=== PATIENT | female | born 1960 | race Caucasian/White ===

== ENCOUNTER → 2017-08-16 | Outpatient (CLI) | payer BC ==
[2017-08-16 11:29] VITALS: RESP 16; BMI 26.0
--- NOTE | 2017-08-16 13:28 | USB ---
EXAMINATION TYPE: US biopsy breast VAD RT DATE OF EXAM: 08/16/2017 CLINICAL HISTORY: R92.8 Abnormal mammogram. TECHNIQUE: Ultrasound guided core biopsy of right breast. COMPARISON: Mammogram and ultrasound 08/11/2017 FINDINGS: The procedure of ultrasound guided core biopsy was explained to the patient. Benefits, alternatives, and risks were discussed. An informed consent was then obtained. The patient was placed in supine positioning for imaging and for the procedure. The overlying skin was prepped and draped in usual sterile fashion. Lidocaine was used as anesthetic into the skin and subcutaneous tissue up to area of concern in the right breast. A ebony was made with surgical scalpel. Under ultrasound guidance, a 12-gauge vacuum assisted biopsy gun device was used to obtain multiple core samples. Following this, a biopsy clip was left in lesion. Postprocedure digital mammogram verified placement within the area of abnormality at the 3:00 position of the right breast. The patient tolerated the procedure well without any immediate complication. The patient was kept in the radiology department for short stay after the procedure and then discharged home in stable condition. IMPRESSION: Successful, uncomplicated ultrasound guided vacuum assisted core biopsy of area of concern in the right breast, full pathology results to follow. 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 Recommendation Surgical consult of the right breast. KATARZYNA
--- NOTE | 2017-08-16 13:36 | MM ---
Reason for exam: additional evaluation requested from abnormal screening. Last mammogram was performed less than 1 month ago. History: Patient is postmenopausal. Took hormonal contraceptives for 20 years. Took estrogen for 2 years. MG Diagnostic Mammo RT Wo CAD CC and LM view(s) were taken of the right breast. Prior study comparison: August 11, 2017, bilateral MG 3d diag mammo w/cad MARCY. September 09, 2016, mammogram, performed at [facility]. ASSESSMENT: Post procedure mammogram for marker placement RECOMMENDATION: Ultrasound of the right breast in 6 months. PENDING PATHOLOGY RESULTS.
[2017-08-16 13:43] VITALS: BP 145/83; PULSE 81; TEMP 97.5
== END | disposition home or self-care (01) ==
LOC: RADUSWWP 11:03
PROVIDERS: ATTEND Surgery
DX: R92.8 Other abnormal and inconclusive findings on diagnostic imaging of breast (principal); C50.811 Malignant neoplasm of overlapping sites of right female breast
CPT/HCPCS: 88305; 19083; G0206; A4648; J2001

== ENCOUNTER → 2017-12-16 | Outpatient (CLI) | payer BC ==
--- NOTE | 2017-12-17 09:47 | BD ---
EXAMINATION TYPE: MG DEXA axial skeleton. DATE OF EXAM: 12/16/2017 COMPARISON: NONE CLINICAL HISTORY: Height: 63 Weight: 148.6 FRAX RISK QUESTIONS: Alcohol (3 or more units per day): no Family History (Parent hip fracture): no Glucocorticoids (More than 3mos): yes-asthma (Ex: prednisone, prednisolone, methylprednisolone, dexamethasone, and hydrocortisone). History of Fracture in Adulthood: no Secondary Osteoporosis: 1. Type 1 Diabetes: no 2. Hyperthyroidism: no 3. Menopause before 45: yes 4. Malnutrition: no 5. Chronic liver disease: no Rheumatoid Arthritis: no Current Tobacco Use: no RISK FACTORS HISTORY OF: History of Wrist Fracture: right When: at age 6 Surgery to Spine/Hip(right/left)/Wrist (right/left): no Family History of Osteoporosis: yes mother Active: sometimes Diet low in dairy products/other sources of calcium: no Postmenopausal woman: age 37 hysterectomy Lost more than 2 inches in height since high school: no Frequent falls: no Adrenal Insufficiency: no MEDICATIONS: maxide vitamins, dulera inhaler Prednisone or other steroids: for asthma Additional History: breast cancer in / just finished radiation EXAM MEASUREMENTS: Bone mineral densitometry was performed using the Kanshu System. Bone mineral density as measured about the Lumbar spine is: ----- L1-L4(G/cm2): 1.003 T Score Values are as follows: ----- L2: -1.9 ----- L3: -1.0 ----- L4: -1.4 ----- L1-L4: -1.5 Bone mineral density has: baseline Bone mineral density about the R hip (g/cm2): 0.829 Bone mineral density about the L hip (g/cm2): 0.884 T Score values are as follows: -----R Neck: -1.5 -----L Neck: -1.1 -----R Total: -1.3 -----L Total: -1.6 Bone mineral density has: baseline IMPRESSION: Osteopenia (T Score between -2.5 and -1). There is slightly increased risk of fracture and the patient may be considered for treatment. Re-Screen 2-5 years. NOTE: T-SCORE=SD OF THE YOUNG ADULT MEAN.
== END | disposition home or self-care (01) ==
LOC: RADBDWWP 14:48
PROVIDERS: ATTEND Internal Medicine Hematology & Oncology
DX: M85.80 Other specified disorders of bone density and structure, unspecified site (principal); Z78.0 Asymptomatic menopausal state
CPT/HCPCS: 77080

== ENCOUNTER → 2018-03-03 | Outpatient (CLI) | payer BC ==
[2018-03-03 10:53] VITALS: BP 133/74; PULSE 86; TEMP 96.7; BMI 26.5
--- NOTE | 2018-03-03 11:26 | P.GSHP ---
History of Present Illness H&P Date: 03/03/18 Patient is status post right breast lumpectomy and sentinal node biopsy. The margins were negative, and sentinel nodes negative for cancer. Patient had radiation and is on Arimidex. Patient is without any complaints. family history: father: colon cancer at 79 patient: adenoma on colonoscopy four years ago maternal uncle: pancreatic cnacer maternal grandmother: pancreatic cancer menstral cycles: 11 : 3, breast fed two for two weeks, 21 at first menopause: 50 BCP: 20 years hormones: 2 years radiation exposure to chest: none smoke: none alcohol: occasional 1 time/year drugs: none past surgical history: 1. breast 2. gallbladder 3. tonsil 4. hysterectomy 5. sinus past medical history: 1. asthma - Constitutional Constitutional: Denies chills, Denies fever - EENT Eyes: denies pain Ears: deny: decreased hearing, ear discharge, earache, tinnitus Ears, nose, mouth and throat: Denies headache, Denies sore throat - Breasts Breasts: bilateral: as per HPI (no complaint about the left breast) - Cardiovascular Cardiovascular: Denies chest pain, Denies shortness of breath - Respiratory Comment: asthma Respiratory: Denies cough, Denies 7 - Gastrointestinal Comment: adenoma will have a repeat colonoscopy Gastrointestinal: Reports constipation - Genitourinary (Female) Genitourinary: Reports as per HPI - Musculoskeletal Musculoskeletal: Denies myalgias - Integumentary Integumentary: Denies pruritus, Denies rash - Neurological Neurological: Denies numbness, Denies weakness - Psychiatric Psychiatric: Reports anxiety, Denies depression - Endocrine Endocrine: Denies fatigue, Denies weight change - Hematologic/Lymphatic Comment: no blod thinners no abnormalities - Allergic/Immunologic Allergic/Immunologic: Reports seasonal allergies Past Medical History Past Medical History: Asthma, GERD/Reflux, Hypertension Additional Past Medical History / Comment(s): Seasonal allergies History of Any Multi-Drug Resistant Organisms: None Reported Past Surgical History: Adenoidectomy, Cholecystectomy, Hernia Repair, Hysterectomy, Tonsillectomy Additional Past Surgical History / Comment(s): Sinus surgery, Breast bx. States bx. came back positive for cancer. Past Anesthesia/Blood Transfusion Reactions: Previous Problems w/ Anesthesia, Postoperative Nausea & Vomiting (PONV) Additional Past Anesthesia/Blood Transfusion Reaction / Comment(s): Following hysterectomy/hernia repair experienced PONV. Following sinus surgery experienced tachycardia Past Psychological History: Anxiety Smoking Status: Never smoker Past Alcohol Use History: Rare Past Drug Use History: None Reported - Past Family History Mother Family Medical History: No Reported History Father Family Medical History: Cancer Additional Family Medical History / Comment(s): Colon Medications and Allergies Home Medications Medication Instructions Recorded Confirmed Type Mometasone/Formoterol [Dulera 200 2 puff INHALATION BID 08/13/17 03/03/18 History Mcg/5 Mcg Inhaler] Triamterene-Hctz 37.5-25Mg 1 cap PO DAILY 08/13/17 03/03/18 History [Dyazide 37.5-25 Capsule] Cetirizine HCl [Zyrtec] 10 mg PO DAILY 09/16/17 03/03/18 History Cranberry Fruit Extract [Cranberry] 200 mg PO HS 09/16/17 03/03/18 History Multivitamin,Therapeutic [Thera] 1 each PO DAILY 09/16/17 03/03/18 History [place]-3 Fatty Acids/Fish Oil [Fish 1 each PO DAILY 09/16/17 03/03/18 History Oil 1,000 mg Softgel] Omeprazole [PriLOSEC] 20 mg PO DIRECTED 09/16/17 03/03/18 History Pseudoephedrine [Sudafed] 30 mg PO Q6H PRN 09/16/17 03/03/18 History Anastrozole [Arimidex] 1 mg PO DAILY 03/03/18 03/03/18 History Docusate [Colace] 100 mg PO HS 03/03/18 03/03/18 History Allergies Allergy/AdvReac Type Severity Reaction Status Date / Time codeine Allergy Anaphylaxis Verified 09/20/17 11:06 Penicillins Allergy Rash/Hives Verified 09/20/17 11:06 Surgical - Exam Vital Signs Temp Pulse BP Pulse Ox 96.7 F L 86 133/74 94 L 03/03/18 10:42 03/03/18 10:42 03/03/18 10:42 03/03/18 10:42 - General well developed, well nourished, no distress - Eyes normal ocular movement, no icteric - ENT no hearing loss, no congestion - Neck no masses, trachea midline - Respiratory normal respiratory effort, clear to auscultation - Cardiovascular Rhythm: regular Heart Sounds: normal: S1, S2 - Abdomen Abdomen: soft, non tender, no guarding, no rigid, no rebound - Integumentary skin changes right breast from radiation - Neurologic no disoriented, no combative - Musculoskeletal normal gait, normal posture - Psychiatric oriented to time, oriented to person, oriented to place, speech is normal, memory intact right breast: skin changes related to radiation, no masses of concern left breast no masses bilateral ailla: no adenopathy of concern Assessment and Plan Assessment: IMP/PLAN; 1. right breast cancer/by history treated in September of 2017 2. anxiety Plan: 1. follow up in 3 months if mammogram is OK CC: DESMOND Hussein Dr. Lal
== END | disposition home or self-care (01) ==
LOC: WWCWWP 10:42
PROVIDERS: ATTEND Surgery
DX: R92.8 Other abnormal and inconclusive findings on diagnostic imaging of breast (principal); Z53.9 Procedure and treatment not carried out, unspecified reason

== ENCOUNTER → 2018-03-03 | Outpatient (CLI) | payer BC | END | disposition home or self-care (01) | LOC: WWCWWP 10:46 | PROVIDERS: ATTEND Surgery | DX: R92.8 Other abnormal and inconclusive findings on diagnostic imaging of breast (principal); Z53.9 Procedure and treatment not carried out, unspecified reason ==

== ENCOUNTER → 2018-03-10 | Outpatient (CLI) | payer BC ==
--- NOTE | 2018-03-10 10:19 | MM ---
Reason for exam: follow-up at short interval from prior study. Last mammogram was performed 7 months ago. History: Patient is postmenopausal and has history of breast cancer at age 57. Radiation therapy of the right breast, October 2017. Benign US breast aspiration single RT of the right breast, September 20, 2017. Malignant MG pre op needle loc RT of the right breast, September 20, 2017. Malignant US breast localization RT of the right breast, September 20, 2017. Lumpectomy of the right breast, September 20, 2017. Malignant US biopsy breast VAD RT of the right breast, August 16, 2017. Took hormonal contraceptives for 20 years. Took estrogen for 2 years. Physical Findings: Nurse did not find any significant physical abnormalities on exam. MG 3D Diag Mammo W/Cad RT CC and MLO view(s) were taken of the right breast. Prior study comparison: August 16, 2017, right breast MG diagnostic mammo RT wo CAD. August 11, 2017, bilateral MG 3d diag mammo w/cad MARCY. The breast tissue is heterogeneously dense. This may lower the sensitivity of mammography. No suspicious abnormality. Post therapy change on the right. These results were verbally communicated with the patient and result sheet given to the patient on 03/10/18. ASSESSMENT: Benign, BI-RAD 2 RECOMMENDATION: Follow-up diagnostic mammogram of both breasts in 5 months.
== END | disposition home or self-care (01) ==
LOC: RADMAMWWP 09:18
PROVIDERS: ATTEND Surgery
DX: Z08 Encounter for follow-up examination after completed treatment for malignant neoplasm (principal); Z85.3 Personal history of malignant neoplasm of breast
CPT/HCPCS: 77061; 77065

== ENCOUNTER → 2018-06-01 | Outpatient (CLI) | payer BC ==
[2018-06-01 17:13] LABS: HCT 43.1 % (34.0-46.0); HGB 14.7 gm/dL (11.4-16.0); MCH 30.2 pg (25.0-35.0); MCHC 34.1 g/dL (31.0-37.0); MCV 88.6 fL (80.0-100.0); Mean Platelet Volume 6.4; Platelet Count 405 k/uL (150-450); RBC 4.86 m/uL (3.80-5.40); RDW 14.1 % (11.5-15.5); WBC 13.6 k/uL (3.8-10.6)
[2018-06-01 17:30] LABS: Albumin 4.1 g/dL (3.5-5.0); C Reactive Protein 58.9 mg/L (<10.0); Calcium 9.8 mg/dL (8.4-10.2); Potassium 3.4 mmol/L (3.5-5.1); Total Bilirubin 0.8 mg/dL (0.2-1.3); Total Protein 6.7 g/dL (6.3-8.2)
[2018-06-01 19:35] LABS: Erythrocyte Sedimentation Rate 19 mm/hr (0-20)
== END | disposition home or self-care (01) ==
LOC: LABWHC1 16:47
PROVIDERS: ATTEND Internal Medicine Gastroenterology
DX: R19.7 Diarrhea, unspecified (principal)
CPT/HCPCS: 36415; 80053; 85027; 85652; 86140

== ENCOUNTER → 2018-06-02 | Outpatient (CLI) | payer BC | END | disposition home or self-care (01) | LOC: LABWHC1 09:41 | PROVIDERS: ATTEND Internal Medicine Gastroenterology | DX: R19.7 Diarrhea, unspecified (principal) | CPT/HCPCS: 83630; 87045; 87046; 87324; 87328; 87329 ==

== ENCOUNTER 2018-06-10 11:58 | Day surgery (SDC) | payer BC ==
[2018-06-08 11:19] VITALS: BMI 25.4
[~2018-06-10 11:58] MED LIST: LACTATED RINGERS 1,000 ML IV SCH; MIDAZOLAM 2 MG/2 ML VIAL IV PRN
[2018-06-10 13:34] VITALS: RESP 16; TEMP 97.4
[2018-06-10] MEDS ORDERED: LIDOCAINE 1% 20 ML VIAL (10MG/ML) FOR IV START INTRADERMA ONE (13:42)
[2018-06-10] MEDS ORDERED: PROPOFOL 10 MG/ML 20 ML VIAL IV ONE (14:40)
[2018-06-10] MEDS ORDERED: LIDOCAINE 1% INJ 10MG/ML (20 ML MDV) ONE (14:40)
--- NOTE | 2018-06-10 14:55 | P.PCN ---
Date of Procedure: 06/10/18 Procedure(s) Performed: BRIEF HISTORY: Patient is a 58-year-old [id number], white female, scheduled for an elective colonoscopy as a part of severe bloody diarrhea for the last 1 month duration. She lost 15 pounds. She was diagnosed with chronic idiopathic proctitis in 2013 at [facility]. She was started on prednisone 40 mg daily week ago and scheduled for colonoscopy to evaluate further. PROCEDURE PERFORMED: Colonoscopy with biopsy. PREOPERATIVE DIAGNOSIS: History of chronic epigastric proctitis diagnosed 4 years ago now with bloody diarrhea of 6 weeks duration.. IV sedation per Anesthesia. PROCEDURE: After informed consent was obtained, the patient, was brought into the endoscopy unit. IV sedation was administered by Anesthesia under continuous monitoring. Digital rectal examination was normal. Initially the Olympus CF- 160 flexible video colonoscope was then inserted in the rectum, gradually advanced into the cecum without any difficulty. Careful examination was performed as the scope was gradually being withdrawn. Ileocecal valve and the appendiceal orifice were visualized and appeared normal. Prep was excellent. Terminal ileal appeared normal. Mucosa of the cecum, ascending colon, transverse colon, descending colon, sigmoid colon, and rectum has diffuse colitis with mucosal erythema, granularity, friability and spontaneous bleeding consistent with moderate to severe colitis. Multiple random biopsies were done from different areas of the colon.. Retroflexion was performed in the rectum and no lesions were seen. The patient tolerated the procedure well. IMPRESSION: Diffuse severe colitis involving the entire colon with mucosal erythema, friability, granularity and spontaneous bleeding consistent with ulcerative colitis Terminal ileum appeared normal RECOMMENDATIONS: Findings of this examination were discussed with the patient as well as a family. She was advised to continue with prednisone 40 mg daily for another 1 week and taper it by 5 mg every week. She'll be seen in the office in 2-3 weeks.
[2018-06-10 15:13] VITALS: BP 131/78; PULSE 76
== END 2018-06-10 15:49 | disposition home or self-care (01) ==
LOC: ORWHC2ENDO 11:58
PROVIDERS: ATTEND Internal Medicine Gastroenterology
DX: K52.9 Noninfective gastroenteritis and colitis, unspecified (principal); Z79.899 Other long term (current) drug therapy; Z88.5 Allergy status to narcotic agent; Z88.0 Allergy status to penicillin; I10 Essential (primary) hypertension; J45.909 Unspecified asthma, uncomplicated; K21.9 Gastro-esophageal reflux disease without esophagitis
CPT/HCPCS: 88305; 45380; J2001; J2704

== ENCOUNTER 2018-06-16 17:46 | Emergency (ER) | payer BC ==
[2018-06-16] MEDS ORDERED: SODIUM CHLORIDE 0.9% 1,000 ML IV STA ×2 (18:22)
--- NOTE | 2018-06-16 18:24 | ED ---
Abdominal Pain HPI - General Stated Complaint: abdominal pain Time Seen by Provider: 06/16/18 18:07 Source: RN notes reviewed, old records reviewed - History of Present Illness Initial Comments: 58-year-old female presents emergency department today with chief complaint of sudden onset of left-sided abdominal pain. Patient reports that she was vacuuming and mopping her floor when she started having a sharp stabbing pain in her left flank. She reports that she has a history of ulcerative colitis. She did have a colonoscopy last Wednesday. Patient reports that she's been started on medication for ulcerative colitis she has had diarrhea but that is chronic for her. Patient states that she's had no significant bloody diarrhea. This time she reports the pain seems to be within the left flank and back area. She reports that she arrived via EMS. She was given IV ketamine for pain control. MD Complaint: abdominal pain, flank pain (L flank) Radiation: LUQ, L flank Severity: mild Severity scale (1-10): 5 Quality: cramping, stabbing Associated Symptoms: diarrhea - Related Data Home Medications Medication Instructions Recorded Confirmed Mometasone/Formoterol [Dulera 200 2 puff INHALATION RT-BID 08/13/17 06/16/18 Mcg/5 Mcg Inhaler] Triamterene-Hctz 37.5-25Mg 1 cap PO DAILY 08/13/17 06/16/18 [Dyazide 37.5-25 Capsule] Cetirizine HCl [Zyrtec] 10 mg PO DAILY 09/16/17 06/16/18 Cranberry Fruit Extract [Cranberry] 200 mg PO HS 09/16/17 06/16/18 Multivitamin,Therapeutic [Thera] 1 each PO DAILY 09/16/17 06/16/18 Pseudoephedrine [Sudafed] 30 mg PO Q6H PRN 09/16/17 06/16/18 Anastrozole [Arimidex] 1 mg PO DAILY 03/03/18 06/16/18 predniSONE 40 mg PO HS 06/08/18 06/16/18 Calcium Carbonate [Calcium] 600 mg PO DAILY 06/16/18 06/16/18 Mesalamine [Lialda] 4.8 gm PO DAILY 06/16/18 06/16/18 Oxymetazoline 0.05% Nasl [place] 2 spray EA NOSTRIL BID 06/16/18 06/16/18 [Afrin 0.05% Nasal [place]] Previous Rx's Medication Instructions Recorded Potassium Chloride ER [K-Dur 20] 20 meq PO BID #14 tab 06/16/18 Allergies Allergy/AdvReac Type Severity Reaction Status Date / Time codeine Allergy Anaphylaxis Verified 06/16/18 19:57 Penicillins Allergy Rash/Hives Verified 06/16/18 19:57 Review of Systems ROS Statement: Those systems with pertinent positive or pertinent negative responses have been documented in the HPI. ROS Other: All systems not noted in ROS Statement are negative. Past Medical History Past Medical History: Asthma, GERD/Reflux, Hypertension Additional Past Medical History / Comment(s): Seasonal allergies History of Any Multi-Drug Resistant Organisms: None Reported Past Surgical History: Adenoidectomy, Cholecystectomy, Hernia Repair, Hysterectomy, Tonsillectomy Additional Past Surgical History / Comment(s): Sinus surgery, Breast bx. colonoscopy. States bx. came back positive for cancer. Past Anesthesia/Blood Transfusion Reactions: Previous Problems w/ Anesthesia, Postoperative Nausea & Vomiting (PONV) Additional Past Anesthesia/Blood Transfusion Reaction / Comment(s): Following hysterectomy/hernia repair experienced PONV. Following sinus surgery experienced tachycardia Past Alcohol Use History: Rare - Past Family History Mother Family Medical History: No Reported History Father Family Medical History: Cancer Additional Family Medical History / Comment(s): Colon General Exam - General Exam Comments Initial Comments: Pleasant 58-year-old female. Alert and oriented. No significant distress. General appearance: alert, in no apparent distress Head exam: Present: atraumatic, normocephalic, normal inspection Eye exam: Present: normal appearance, PERRL, EOMI. Absent: scleral icterus, conjunctival injection, periorbital swelling ENT exam: Present: normal exam, mucous membranes moist Neck exam: Present: normal inspection. Absent: tenderness, meningismus, lymphadenopathy Respiratory exam: Present: normal lung sounds bilaterally. Absent: respiratory distress, wheezes, rales, rhonchi, stridor Cardiovascular Exam: Present: regular rate, normal rhythm, normal heart sounds. Absent: systolic murmur, diastolic murmur, rubs, gallop, clicks GI/Abdominal exam: Present: soft, tenderness (L flank LUQ tenderness), normal bowel sounds. Absent: distended, guarding, rebound, rigid Extremities exam: Present: normal inspection, full ROM, normal capillary refill. Absent: tenderness, pedal edema, joint swelling, calf tenderness Back exam: Present: normal inspection Neurological exam: Present: alert, oriented X3, CN II-XII intact Psychiatric exam: Present: normal affect, normal mood Skin exam: Present: warm, dry, intact, normal color. Absent: rash Course Vital Signs 06/16/18 18:11 Temperature 98.1 F Pulse Rate 89 Respiratory 18 Rate Blood Pressure 135/70 O2 Sat by Pulse 97 Oximetry Medical Decision Making - Medical Decision Making This is a 58-year-old female presents emergency Department with sudden onset of left-sided flank and abdominal pain while she was cleaning today. Patient has a history of colonoscopy last Wednesday when has history of ulcerative cries. She was recently started on new medication by her GI doctor. She has had continuous diarrhea. She does have evidence of hypokalemia likely related to the diarrhea. She is given oral replacement and IV replacement. Lactic acidosis mildly elevated 2.3 subsequently related to diarrhea. Given a 2 L bolus. On exam she is relatively nontender. With left shift and onset of her pain and would do In with contrast. CT shows evidence of perinephric edema and left-sided hydronephrosis and hydroureter. There is no evidence of stone at this time. Patient likely passed it. At this time I discussed that she can follow-up with primary care physician. She will be given a dose of potassium. EKG shows no acute changes related to the hypokalemia. Discussed case with Dr. Middleton. Discussed FOR the possibility of clostridial infection such as C. diff. She is unable to give us a stool sample here in the emergency department. I discussed the Patient she did follow-up with primary care physician. Patient understands treatment plan will comply. Return parameters were discussed. - Lab Data Result diagrams: 06/16/18 18:05 06/16/18 18:05 Lab Results 06/16/18 06/16/18 06/16/18 Range/Units 18:05 18:05 18:05 WBC 14.6 H (3.8-10.6) k/uL RBC 3.97 (3.80-5.40) m/uL Hgb 12.1 (11.4-16.0) gm/dL Hct 36.6 (34.0-46.0) % MCV 92.3 (80.0-100.0) fL MCH 30.5 (25.0-35.0) pg MCHC 33.0 (31.0-37.0) g/dL RDW 13.9 (11.5-15.5) % Plt Count 260 (150-450) k/uL Neutrophils % 84 % Lymphocytes % 10 % Monocytes % 4 % Eosinophils % 1 % Basophils % 0 % Neutrophils # 12.2 H (1.3-7.7) k/uL Lymphocytes # 1.4 (1.0-4.8) k/uL Monocytes # 0.6 (0-1.0) k/uL Eosinophils # 0.2 (0-0.7) k/uL Basophils # 0.0 (0-0.2) k/uL PT 9.9 (9.0-12.0) sec INR 1.0 (<1.2) APTT 18.1 L (22.0-30.0) sec Sodium 137 (137-145) mmol/L Potassium 3.0 L* (3.5-5.1) mmol/L Chloride 103 (98-107) mmol/L Carbon Dioxide 27 (22-30) mmol/L Anion Gap 7 mmol/L BUN 23 H (7-17) mg/dL Creatinine 1.00 (0.52-1.04) mg/dL Est GFR (CKD-EPI)AfAm 72 (>60 ml/min/1.73 sqM) Est GFR (CKD-EPI)NonAf 62 (>60 ml/min/1.73 sqM) Glucose 92 (74-99) mg/dL Plasma Lactic Acid Bob (0.7-2.0) mmol/L Calcium 9.8 (8.4-10.2) mg/dL Total Bilirubin 0.5 (0.2-1.3) mg/dL AST 22 (14-36) U/L ALT 31 (9-52) U/L Alkaline Phosphatase 48 (38-126) U/L Troponin I (0.000-0.034) ng/mL Total Protein 5.7 L (6.3-8.2) g/dL Albumin 3.2 L (3.5-5.0) g/dL Amylase 48 (30-110) U/L Lipase 86 (23-300) U/L Urine Color Urine Appearance (Clear) Urine pH (5.0-8.0) Ur Specific [place] (1.001-1.035) Urine Protein (Negative) Urine Glucose (UA) (Negative) Urine Ketones (Negative) Urine Blood (Negative) Urine Nitrite (Negative) Urine Bilirubin (Negative) Urine Urobilinogen (<2.0) mg/dL Ur Leukocyte Esterase (Negative) 06/16/18 06/16/18 06/16/18 Range/Units 18:05 18:48 18:48 WBC (3.8-10.6) k/uL RBC (3.80-5.40) m/uL Hgb (11.4-16.0) gm/dL Hct (34.0-46.0) % MCV (80.0-100.0) fL MCH (25.0-35.0) pg MCHC (31.0-37.0) g/dL RDW (11.5-15.5) % Plt Count (150-450) k/uL Neutrophils % % Lymphocytes % % Monocytes % % Eosinophils % % Basophils % % Neutrophils # (1.3-7.7) k/uL Lymphocytes # (1.0-4.8) k/uL Monocytes # (0-1.0) k/uL Eosinophils # (0-0.7) k/uL Basophils # (0-0.2) k/uL PT (9.0-12.0) sec INR (<1.2) APTT (22.0-30.0) sec Sodium (137-145) mmol/L Potassium (3.5-5.1) mmol/L Chloride (98-107) mmol/L Carbon Dioxide (22-30) mmol/L Anion Gap mmol/L BUN (7-17) mg/dL Creatinine (0.52-1.04) mg/dL Est GFR (CKD-EPI)AfAm (>60 ml/min/1.73 sqM) Est GFR (CKD-EPI)NonAf (>60 ml/min/1.73 sqM) Glucose (74-99) mg/dL Plasma Lactic Acid Bob 2.3 H* (0.7-2.0) mmol/L Calcium (8.4-10.2) mg/dL Total Bilirubin (0.2-1.3) mg/dL AST (14-36) U/L ALT (9-52) U/L Alkaline Phosphatase (38-126) U/L Troponin I <0.012 (0.000-0.034) ng/mL Total Protein (6.3-8.2) g/dL Albumin (3.5-5.0) g/dL Amylase (30-110) U/L Lipase (23-300) U/L Urine Color Light Yellow Urine Appearance Clear (Clear) Urine pH 8.0 (5.0-8.0) Ur Specific [place] 1.005 (1.001-1.035) Urine Protein Negative (Negative) Urine Glucose (UA) Negative (Negative) Urine Ketones Negative (Negative) Urine Blood Negative (Negative) Urine Nitrite Negative (Negative) Urine Bilirubin Negative (Negative) Urine Urobilinogen <2.0 (<2.0) mg/dL Ur Leukocyte Esterase Negative (Negative) 06/16/18 19:35 EKG sinus rhythm, normal EKG. Ventricularly of 82 bpm. Pulse 126. QRS duration 94. QTQTC 352/411. - Radiology Data Radiology results: report reviewed X-ray of the abdomen shows a nonacute abdomen. Surgical clips noted and cholecystectomy. Normal chest x-ray. Left-sided hydronephrosis and hydroureter. Left-sided. For edema. Neurologic no. There is no stones noted. This could relate to release only passed stone. Disposition Clinical Impression: Hydronephrosis of left kidney, Hypokalemia Disposition: HOME SELF-CARE Condition: Good Instructions: Hypokalemia (ED), Hydronephrosis (ED) Additional Instructions: Patient advised to follow up with primary care physician. Return to emergency department if any alarming signs or symptoms occur. Prescriptions: Potassium Chloride ER [K-Dur 20] 20 meq PO BID #14 tab Is patient prescribed a controlled substance at d/c from ED?: No Referrals: Dirk Ogden DO [Primary Care Provider] - 1-2 days Time of Disposition: 21:23
[2018-06-16 18:27] VITALS: RESP 18
[2018-06-16 18:38] LABS: Basophils % (A) 0 %; Eosinophils # (A) 0.2 k/uL (0-0.7); Eosinophils % (A) 1 %; HCT 36.6 % (34.0-46.0); HGB 12.1 gm/dL (11.4-16.0); Lymphocytes # (A) 1.4 k/uL (1.0-4.8); Lymphocytes % (A) 10 %; MCH 30.5 pg (25.0-35.0); MCV 92.3 fL (80.0-100.0); Mean Platelet Volume 6.5; Monocytes # (A) 0.6 k/uL (0-1.0); Monocytes % (A) 4 %; Neutrophils # (A) 12.2 k/uL (1.3-7.7); Neutrophils % (A) 84 %; Platelet Count 260 k/uL (150-450); RBC 3.97 m/uL (3.80-5.40); RDW 13.9 % (11.5-15.5); WBC 14.6 k/uL (3.8-10.6)
[2018-06-16 18:46] LABS: Albumin 3.2 g/dL (3.5-5.0); Calcium 9.8 mg/dL (8.4-10.2); Total Bilirubin 0.5 mg/dL (0.2-1.3); Total Protein 5.7 g/dL (6.3-8.2)
[2018-06-16 19:03] LABS: Appearance,Urine Clear (Clear); Bilirubin,Urine Negative (Negative); Blood,Urine Negative (Negative); Color,Urine Light Yellow; Glucose,Urine (UA) Negative (Negative); Ketones,Urine Negative (Negative); Leukocyte Esterase,Urine Negative (Negative); Nitrite,Urine Negative (Negative); Protein,Urine Negative (Negative); Specific Gravity,Urine 1.005 (1.001-1.035); Urobilinogen,Urine <2.0 mg/dL (<2.0)
[2018-06-16 19:13] LABS: Prothrombin Time 9.9 sec (9.0-12.0)
[2018-06-16 19:21] LABS: Partial Thromboplastin Time 18.1 sec (22.0-30.0)
--- NOTE | 2018-06-16 19:25 | XR ---
EXAMINATION TYPE: XR chest 2V DATE OF EXAM: 06/16/2018 COMPARISON: NONE HISTORY: Abdominal pain TECHNIQUE: Frontal and lateral views of the chest are obtained. FINDINGS: Heart and mediastinum are normal. Lungs are clear. Diaphragm is normal. Bony thorax is int act. There are clips at the right axilla. IMPRESSION: Normal chest
[2018-06-16] MEDS ORDERED: POTASSIUM CHLORIDE ER 20 MEQ TAB.ER PO STA (19:30)
[2018-06-16] MEDS ORDERED: Potassium Replacement Protocol 1 EACH MISC MISCELLANE PRN (19:31)
[2018-06-16] MEDS ORDERED: SODIUM CHLORIDE 0.9% 1,000 ML IV ONE (19:33)
--- NOTE | 2018-06-16 19:36 | XR ---
EXAMINATION TYPE: XR KUB DATE OF EXAM: 06/16/2018 COMPARISON: NONE HISTORY: Abdominal pain TECHNIQUE: 2 views upright FINDINGS: There is no sign of intestinal obstruction or pneumoperitoneum. Fecal pattern is normal. Th ere are clips from cholecystectomy. There are surgical clips over the right axilla and right breast. There are no pathologic calcifications over the kidneys. IMPRESSION: Nonacute abdomen.
[2018-06-16] MEDS ORDERED: POTASSIUM CHLORIDE 20 MEQ in WATER FOR INJECTION 1 100ML.BAG IVPB SCH (19:45)
--- NOTE | 2018-06-16 21:19 | CT ---
EXAMINATION TYPE: CT abdomen pelvis w con DATE OF EXAM: 06/16/2018 COMPARISON: None HISTORY: Left lower quadrant abdominal pain and diarrhea. CT DLP: 508.5 mGycm Automated exposure control for dose reduction was used. TECHNIQUE: Helical acquisition of images was performed from the lung bases through the pelvis. CONTRAST: Performed without Oral Contrast and with IV Contrast, patient injected with 100ml mL of Isovue 300. FINDINGS: Lung bases are clear. There is no pleural effusion. Heart size is normal. Liver and spleen appear normal. There is no pancreatic mass. There are clips from cholecystectomy. Bi le ducts are not dilated. There is no adrenal mass. There is stranding around the left kidney with mild left-sided hydronephros is. There is left side. Ureteral edema. I see no ureteral calculus. Right kidney shows no edema. Kidn eys have normal size. There is 2.5 cm cyst on the upper pole right kidney. There is no retroperitoneal adenopathy. There is small umbilical hernia that contains fat. There is n o intestinal wall thickening. There are no dilated loops. There is no ascites. Bladder distends ant hly. There is L5 spondylolysis with a minimal first-degree L5-S1 spondylolisthesis. There is L5-S1 di sc space narrowing. IMPRESSION: THERE IS LEFT SIDE MILD HYDRONEPHROSIS AND HYDROURETER. LEFT-SIDED CAMILLA-NEPHRIC EDEMA. PERIURETERAL E EMERY. NO STONES SEEN. THIS COULD RELATE TO RECENTLY PASSED STONE. Severe acute pyelonephritis is also possible. Mild umbilical hernia.
[2018-06-16 21:56] VITALS: BP 133/68; PULSE 91; TEMP 97.9
== END 2018-06-16 21:58 | disposition home or self-care (01) ==
LOC: EC 17:46
DX: N13.30 Unspecified hydronephrosis (principal); N13.4 Hydroureter; E87.6 Hypokalemia; R19.7 Diarrhea, unspecified; J45.909 Unspecified asthma, uncomplicated; I10 Essential (primary) hypertension; Z79.51 Long term (current) use of inhaled steroids; Z79.899 Other long term (current) drug therapy; Z88.0 Allergy status to penicillin; Z88.5 Allergy status to narcotic agent; Z90.49 Acquired absence of other specified parts of digestive tract; Z90.710 Acquired absence of both cervix and uterus
CPT/HCPCS: 36415; 93005; 80053; 82150; 83605; 83690; 84484; 85025; 85610; 85730; 81003; 87040; 71046; 74018; 74177; 99285; 96365; 96361; J3480; Q9967

== ENCOUNTER → 2018-07-04 | Outpatient (CLI) | payer BC ==
[2018-07-04 13:17] VITALS: BP 142/83; PULSE 70; RESP 14; TEMP 98; BMI 25.0
--- NOTE | 2018-07-04 13:25 | P.GSHP ---
History of Present Illness H&P Date: 07/04/18 Patient is a 58-year-old white female who is status post right breast lumpectomy and sentinel node biopsy in September 2017. The margins were negative and the sentinel node was negative for cancer. The patient had radiation in is on Arimidex. The patient complains of swelling around her right nipple at times, but this has been getting less. she is here for a routine follow-up. Family history: Father colon cancer a 79 Patient adenoma on colonoscopy 4 years ago/repeat colonoscopy 2 and half weeks ago positive for ulcerative colitis Maternal uncle: Pancreatic cancer Maternal grandmother: Pancreatic cancer Hormonal history: Menstrual cycles: 10 Pregnancies: 3 breast-fed to for 2 weeks, 21 of first Menopause: 50 control pills: Approximately 20 years Hormones: Approximately 2 years Social history: Smoke: None Alcohol: Occasional 1 time per year Drugs: Negative Past surgical history: 1. Breast surgery 2. Cholecystectomy 3. Tonsillectomy 4. Hysterectomy 5. Sinus surgery Past medical history: Asthma - Constitutional Comment: on arimidex Constitutional: Reports night sweats - EENT Eyes: denies blurred vision, denies pain Ears: deny: decreased hearing, tinnitus Ears, nose, mouth and throat: Denies headache, Denies sore throat - Breasts Breasts: bilateral: as per HPI - Cardiovascular Cardiovascular: Denies chest pain, Denies shortness of breath - Respiratory Comment: asthma - Gastrointestinal Gastrointestinal: Reports as per HPI - Genitourinary (Female) Genitourinary: Reports kidney stones, Denies dysuria, Denies hematuria - Menstruation Menstruation: Reports postmenopausal - Musculoskeletal Musculoskeletal: Denies myalgias - Integumentary Integumentary: Denies pruritus, Denies rash - Neurological Neurological: Denies numbness, Denies weakness - Psychiatric Psychiatric: Denies anxiety, Denies depression - Endocrine Endocrine: Reports weight change, Denies fatigue - Hematologic/Lymphatic Comment: none - Allergic/Immunologic Allergic/Immunologic: Reports seasonal allergies Past Medical History Past Medical History: Asthma, GERD/Reflux, Hypertension Additional Past Medical History / Comment(s): Seasonal allergies History of Any Multi-Drug Resistant Organisms: None Reported Past Surgical History: Adenoidectomy, Cholecystectomy, Hernia Repair, Hysterectomy, Tonsillectomy Additional Past Surgical History / Comment(s): Sinus surgery, Breast bx. colonoscopy. States bx. came back positive for cancer. Past Anesthesia/Blood Transfusion Reactions: Previous Problems w/ Anesthesia, Postoperative Nausea & Vomiting (PONV) Additional Past Anesthesia/Blood Transfusion Reaction / Comment(s): Following hysterectomy/hernia repair experienced PONV. Following sinus surgery experienced tachycardia Past Alcohol Use History: Rare - Past Family History Mother Family Medical History: No Reported History Father Family Medical History: Cancer Additional Family Medical History / Comment(s): Colon Medications and Allergies Home Medications Medication Instructions Recorded Confirmed Type Mometasone/Formoterol [Dulera 200 2 puff INHALATION RT-BID 08/13/17 06/16/18 History Mcg/5 Mcg Inhaler] Triamterene-Hctz 37.5-25Mg 1 cap PO DAILY 08/13/17 06/16/18 History [Dyazide 37.5-25 Capsule] Cetirizine HCl [Zyrtec] 10 mg PO DAILY 09/16/17 06/16/18 History Cranberry Fruit Extract [Cranberry] 200 mg PO HS 09/16/17 06/16/18 History Multivitamin,Therapeutic [Thera] 1 each PO DAILY 09/16/17 06/16/18 History Pseudoephedrine [Sudafed] 30 mg PO Q6H PRN 09/16/17 06/16/18 History Anastrozole [Arimidex] 1 mg PO DAILY 03/03/18 06/16/18 History predniSONE 40 mg PO HS 06/08/18 06/16/18 History Calcium Carbonate [Calcium] 600 mg PO DAILY 06/16/18 06/16/18 History Mesalamine [Lialda] 4.8 gm PO DAILY 06/16/18 06/16/18 History Oxymetazoline 0.05% Nasl [place] 2 spray EA NOSTRIL BID 06/16/18 06/16/18 History [Afrin 0.05% Nasal [place]] Potassium Chloride ER [K-Dur 20] 20 meq PO BID #14 tab 06/16/18 Rx Allergies Allergy/AdvReac Type Severity Reaction Status Date / Time codeine Allergy Anaphylaxis Verified 07/04/18 13:11 Penicillins Allergy Rash/Hives Verified 07/04/18 13:11 Surgical - Exam - General well developed, well nourished, no distress - Eyes normal ocular movement, no icteric - ENT no hearing loss, no congestion - Neck no masses, trachea midline - Respiratory normal respiratory effort, clear to auscultation - Cardiovascular Rhythm: regular Heart Sounds: normal: S1, S2 - Abdomen Abdomen: soft, non tender, no guarding, no rigid, no rebound - Neurologic no disoriented, no combative - Musculoskeletal normal gait, normal posture - Psychiatric oriented to time, oriented to person, oriented to place, speech is normal, memory intact Right breast: Multi-positional exam reveals most likely with the BioSorb in the area of the lumpectomy site, well-healed scars, mild erythema related to radiation no lesions of concern Right axilla: No adenopathy of concern Left breast: Multi-positional exam no dominant masses or nodules of concern, fibrocystic changes Left axilla: No adenopathy of concern Results patient due for bilateral mammogram in July Assessment and Plan Assessment: impression: 1. Right breast cancer status post lumpectomy patient is status post radiation and is on a Rheumatrex 2. Asthma 3. Ulcerative colitis 4. Patient with a history of adenoma colonoscopy recent colonoscopy no further adenomatous Plan: 1. Patient due for bilateral mammogram in July with appointment at that time 2. Patient will follow with medical and radiation oncology 3. Continue present care Cc: Dr. Jovita yañez
== END | disposition home or self-care (01) ==
LOC: WWCWWP 11:51
PROVIDERS: ATTEND Surgery
DX: Z53.9 Procedure and treatment not carried out, unspecified reason (principal)

== ENCOUNTER → 2018-08-15 | Outpatient (CLI) | payer BC ==
--- NOTE | 2018-08-15 14:13 | MM ---
Reason for exam: follow-up at short interval from prior study. Last mammogram was performed 5 months ago. History: Patient is postmenopausal and has history of breast cancer at age 57. Radiation therapy of the right breast, October 2017. Benign US breast aspiration single RT of the right breast, September 20, 2017. Malignant MG pre op needle loc RT of the right breast, September 20, 2017. Malignant US breast localization RT of the right breast, September 20, 2017. Lumpectomy of the right breast, September 20, 2017. Malignant US biopsy breast VAD RT of the right breast, August 16, 2017. Took hormonal contraceptives for 20 years. Took estrogen for 2 years. Taking antineoplastic beginning at age 57. Physical Findings: Nurse Summary: 2cm nodule in the right breast at 1 o'clock (nurse allie). MG 3D Diag Mammo W/Cad MARCY Bilateral CC and MLO view(s) were taken. Prior study comparison: March 10, 2018, right breast MG 3d diag mammo w/cad RT. August 16, 2017, right breast MG diagnostic mammo RT wo CAD. The breast tissue is heterogeneously dense. This may lower the sensitivity of mammography. No suspicious calcifications are seen. Stable post operative changes right breast of lumpectomy and radiation therapy. These results were verbally communicated with the patient and result sheet given to the patient on 08/15/18. ASSESSMENT: Benign, BI-RAD 2 RECOMMENDATION: Follow-up diagnostic mammogram of both breasts in 1 year.
== END ==
LOC: RADMAMWWP 13:19
PROVIDERS: ATTEND Surgery
DX: Z08 Encounter for follow-up examination after completed treatment for malignant neoplasm (principal); Z85.3 Personal history of malignant neoplasm of breast
CPT/HCPCS: 77062; 77066

== ENCOUNTER → 2018-09-01 | Outpatient (CLI) | payer BC ==
[2018-09-01 11:37] VITALS: BP 149/78; PULSE 80; RESP 18; TEMP 96.9; BMI 26.0
--- NOTE | 2018-09-01 12:03 | P.PN ---
Subjective Progress Note Date: 09/01/18 Principal diagnosis: Right breast lumpectomy 09/20/2017 The patient is a 58-year-old white female who is status post right breast upper outer quadrant lumpectomy and radiation therapy. This was performed for a T1b N0 M0 ER positive [place] positive HER-2/eileen negative tumor. She underwent a needle localization right breast lumpectomy and sentinel node biopsy. Pathology revealed an 8 mm focus of invasive mammary cancer, grade 2. Margins were negative. 4 sentinel nodes were negative. The patient completed radiation therapy on . The patient with no lumps in her breast which she is concerned about. No nipple discharge of concern. She had a right breast mammogram on 1020 918 this was felt to be stable. And repeat bilateral mammogram in 1 year was recommended. She is presently taking Anestrazole. She has no complaints related to this. She was seen by Dr. James from medical oncology has has not been recommended to undergo any chemotherapy. Marce has no complaints related to the Arimidex. The patient did have a episode of ulcerative colitis for which she was treated with mesalamine and is improving. Objective - Vital Signs Vital signs: Vital Signs Temp 96.9 F L 09/01/18 11:30 Pulse 80 09/01/18 11:30 Resp 18 09/01/18 11:30 BP 149/78 09/01/18 11:30 Pulse Ox 98 09/01/18 11:30 Intake & Output 08/31/18 09/01/18 09/01/18 18:59 06:59 18:59 Weight 66.678 kg - Exam BMI 26 - Constitutional General appearance: Present: average body habitus - EENT Eyes: Present: EOMI ENT: Present: hearing grossly normal - Neck Neck: Present: normal ROM - Respiratory Respiratory: bilateral: CTA - Cardiovascular Rhythm: regular Heart sounds: normal: S1, S2 - Gastrointestinal General gastrointestinal: Present: scaphoid, soft - Integumentary Integumentary: Present: normal turgor - Musculoskeletal Musculoskeletal: Present: gait normal - Psychiatric Psychiatric: Present: A&O x's 3, appropriate affect - Additional findings Additional findings: Breast examination: Right breast: Scar from prior surgery and radiation changes multiple positional exam no dominant masses or nodules of concern Right axilla: Well-healed scar from sentinel node biopsy no adenopathy of concern Left breast: Multiple positional exam no dominant mass or nodules of concern Left axilla: No adenopathy of concern Assessment and Plan Assessment: Impression: 1. Patient status post right breast lumpectomy/radiation therapy for stage I ER /[place] positive upper outer quadrant right breast cancer 2. No evidence of recurrent disease 3. History of ulcerative coliti4. Right breast mammogram 1020 918 no lesions of concern, follow-up bilateral mammogram in 1 year Plan: 1. The patient is doing well at this time she has no evidence of recurrent breast cancer. She will continue on her arimidex. She will follow up here for repeat physician examination 4 months time. cc: Taty Jain
== END | disposition home or self-care (01) ==
LOC: WWCWWP 10:49
PROVIDERS: ATTEND Surgery
DX: Z53.9 Procedure and treatment not carried out, unspecified reason (principal)

== ENCOUNTER → 2019-01-27 | Outpatient (CLI) | payer BC ==
[2019-01-27 14:35] VITALS: BP 167/91; PULSE 88; RESP 16; TEMP 98.3; BMI 26.9
--- NOTE | 2019-01-27 14:57 | P.PN ---
Subjective Progress Note Date: 01/27/19 Principal diagnosis: right breast cancer 2016 Marce is a 58-year-old white female status post right breast lumpectomy and radiation therapy. This was performed for a T1b N0 M0 ER positive. Positive HER-2/eileen negative tumor. She underwent needle localization right breast lumpectomy and sentinel node biopsy. Pathology revealed an 8 mm focus of invasive mammary carcinoma grade 2. Margins were negative, 4 sentinel nodes were negative. The patient completed radiation therapy and [id number]. The patient at this time has no complaints related to her breasts. The patient's last bilateral mammogram was on July 19. This was felt to be stable. The patient is presently on anastrozole., She does complain of some pain in her hips extending down into her feet. She was seen by Dr. Castanon who ordered a bone scan. Additionally the patient does have a history of ulcerative colitis which was last a problem in March 2018. Family History: sister: diagnosed with carcino-sarcoma of the uterus/metastatic father: colon and mesothelioma Paternal grandmother: Uterine cancer Maternal grandmother: Pancreatic cancer Hormonal History: menarche: 10 ; 2, 3 children, breast fed:yes, age at first: 21 menopause: hysterectomy at 37 for prolapse uterus, did not take ovaries BCP: 21 years hormones: estrogen supplements for two years, and cream for 1 year, is now on anestrazole Objective - Vital Signs Vital signs: Vital Signs Temp 98.3 F 01/27/19 14:32 Pulse 88 01/27/19 14:32 Resp 16 01/27/19 14:32 BP 167/91 01/27/19 14:32 Pulse Ox 96 01/27/19 14:32 Intake & Output 01/26/19 01/27/19 01/27/19 18:59 06:59 18:59 Weight 68.946 kg - Exam BMI 26.9 - Constitutional General appearance: Present: average body habitus - EENT Eyes: Present: EOMI ENT: Present: hearing grossly normal - Neck Neck: Present: normal ROM - Respiratory Respiratory: bilateral: CTA - Cardiovascular Rhythm: regular Heart sounds: normal: S1, S2 - Gastrointestinal General gastrointestinal: Present: soft - Integumentary Integumentary: Present: normal turgor - Musculoskeletal Musculoskeletal: Present: gait normal - Psychiatric Psychiatric: Present: A&O x's 3, appropriate affect, intact judgment & insight - Additional findings Additional findings: Breast examination: Right breast: Scar well-healed from prior lumpectomy, multifocal exam fibrocystic changes and radiation changes, no new dominant masses or nodules of concern Right axilla: No adenopathy of concern was that scar from prior sentinel node biopsy Left breast: Multiple positional exam no dominant masses or nodules of concern, fibrocystic changes Left axilla: No adenopathy of concern Assessment and Plan Assessment: Impression: 1. Right breast cancer status post lumpectomy and radiation therapy 2. Patient is on Arimidex 3. History of asthma 4. History of ulcerative colitis 5. Patient with some hip discomfort bone scan is ordered as per Dr. Castanon Plan: 1. Repeat physician exam in 6 months 2. Continue her limited access as per Dr. Castanon 3. Medical management of medical conditions Cc: Dr. Ogden
== END ==
LOC: WWCWWP 14:24
PROVIDERS: ATTEND Surgery
DX: Z53.9 Procedure and treatment not carried out, unspecified reason (principal)

== ENCOUNTER → 2019-01-27 | Outpatient (CLI) | payer BC ==
--- NOTE | 2019-01-27 14:31 | NM ---
EXAMINATION TYPE: NM bone scan whole body DATE OF EXAM: 01/27/2019 COMPARISON: NONE HISTORY: Breast cancer Delayed whole-body scanning was performed following the injection of 24.8 mCi Tc 99m MDP. Images acq uired 3.5 hours post injection. FINDINGS: No suspicious radiotracer uptake is seen within the axial or appendicular skeleton. Minimal symmetric uptake is seen at L5, within the sacroiliac joints, acromioclavicular joints, sternoclavicular joint s, glenohumeral joints, femoral acetabular joints, knees and ankles. IMPRESSION: 1. No scintigraphic findings to suggest metastasis. Degenerative changes are seen of the axial and ap pendicular skeleton.
== END | disposition home or self-care (01) ==
LOC: RADNMMAIN 09:45
PROVIDERS: ATTEND Internal Medicine Hematology & Oncology
DX: C50.211 Malignant neoplasm of upper-inner quadrant of right female breast (principal); M19.91 Primary osteoarthritis, unspecified site; M47.819 Spondylosis without myelopathy or radiculopathy, site unspecified; Z88.0 Allergy status to penicillin; Z91.013 Allergy to seafood; Z88.5 Allergy status to narcotic agent
CPT/HCPCS: 78306; A9503

== ENCOUNTER → 2019-08-10 | Outpatient (CLI) | payer BC ==
[2019-08-10 14:48] LABS: Basophils # (A) 0.1 k/uL (0-0.2); Basophils % (A) 0 %; Eosinophils # (A) 0.2 k/uL (0-0.7); Eosinophils % (A) 1 %; HCT 40.3 % (34.0-46.0); HGB 13.4 gm/dL (11.4-16.0); Lymphocytes # (A) 1.8 k/uL (1.0-4.8); Lymphocytes % (A) 13 %; MCH 30.4 pg (25.0-35.0); MCHC 33.1 g/dL (31.0-37.0); MCV 91.7 fL (80.0-100.0); Mean Platelet Volume 5.5; Monocytes # (A) 0.8 k/uL (0-1.0); Monocytes % (A) 5 %; Neutrophils # (A) 11.1 k/uL (1.3-7.7); Neutrophils % (A) 79 %; Platelet Count 275 k/uL (150-450); RDW 13.7 % (11.5-15.5); WBC 14.1 k/uL (3.8-10.6)
[2019-08-10 18:55] LABS: African American GFR (CKD) 80.5 (60.0-200.0); Albumin/Globulin Ratio 2.22 (1.60-3.17); Anion Gap 9.6 mmol/L (4.00-12.00); BUN/Creat Ratio 25.56 Ratio (12.00-20.00); C Reactive Protein 1.5 mg/dL (0.0-0.8); Calcium 9.8 mg/dL (8.7-10.3); Carbon Dioxide 29.4 mmol/L (21.6-31.8); Globulin 1.8 g/dL (1.6-3.3); Potassium 3.7 mmol/L (3.5-5.5); Total Bilirubin 0.5 mg/dL (0.3-1.2); Total Protein 5.8 g/dL (6.2-8.2)
[2019-08-10 19:24] LABS: Erythrocyte Sedimentation Rate 11 mm/hr (0-20)
[2019-08-11 04:00] LABS: Hepatitis A Antibody IgM Non-Reactive (Non-Reactive); Hepatitis B Core IgM Non-Reactive (Non-Reactive); Hepatitis B Surface Antigen Non-Reactive (Non-Reactive); Hepatitis C IgG Antibody Non-Reactive (Non-Reactive)
== END | disposition home or self-care (01) ==
LOC: LABWHC1 14:25
PROVIDERS: ATTEND Physician Assistant
DX: K51.00 Ulcerative (chronic) pancolitis without complications (principal)
CPT/HCPCS: 36415; 80053; 80074; 85025; 85652; 86140

== ENCOUNTER → 2019-08-17 | Outpatient (CLI) | payer BC ==
--- NOTE | 2019-08-18 08:32 | MM ---
Reason for exam: additional evaluation requested from prior study. Last mammogram was performed 1 year ago. History: Patient is postmenopausal and has history of breast cancer at age 57. Radiation therapy of the right breast, October 2017. Benign US breast aspiration single RT of the right breast, September 20, 2017. Malignant MG pre op needle loc RT of the right breast, September 20, 2017. Malignant US breast localization RT of the right breast, September 20, 2017. Lumpectomy of the right breast, September 20, 2017. Malignant US biopsy breast VAD RT of the right breast, August 16, 2017. Took hormonal contraceptives for 20 years. Took estrogen for 2 years. Taking antineoplastic beginning at age 57. Physical Findings: Nurse did not find any significant physical abnormalities on exam. MG 3D Diag Mammo W/Cad MARCY Bilateral CC and MLO view(s) were taken. Prior study comparison: August 15, 2018, bilateral MG 3d diag mammo w/cad MARCY. March 10, 2018, right breast MG 3d diag mammo w/cad RT. The breast tissue is heterogeneously dense. This may lower the sensitivity of mammography. Post surgical and post therapy changes right breast with Biozorb redemonstrated. Progressive calcifications at the Biozorb likely fat necrosis. 6 month follow up recommended. These results were verbally communicated with the patient and result sheet given to the patient on 08/17/19. ASSESSMENT: Probably benign, BI-RAD 3 RECOMMENDATION: Follow-up diagnostic mammogram of the right breast in 6 months.
== END | disposition home or self-care (01) ==
LOC: RADMAMWWP 10:38
PROVIDERS: ATTEND Surgery
DX: Z08 Encounter for follow-up examination after completed treatment for malignant neoplasm (principal); Z85.3 Personal history of malignant neoplasm of breast
CPT/HCPCS: 77062; 77066

== ENCOUNTER → 2019-10-19 | Outpatient (CLI) | payer BC ==
[2019-10-19 11:01] VITALS: BP 157/92; PULSE 63; RESP 18; TEMP 97.8
--- NOTE | 2019-10-19 12:03 | P.PN ---
Subjective Progress Note Date: 10/19/19 Principal diagnosis: stage 1A right breast cancer/surveillance Marce is a 58-year-old white female status post right breast lumpectomy and radiation therapy. Her surgery was in 2016. This was performed for a T1b N0 M0 ER+Pr+HER-2/eileen - tumor. She underwent needle localization right breast lumpectomy and sentinel node biopsy. Pathology revealed an 8 mm focus of invasive mammary carcinoma grade 2. Margins were negative, 4 sentinel nodes were negative. The patient completed radiation therapy and [id number]. The patient at this time has no complaints related to her breasts. The patient's last bilateral mammogram was on August 17. This was done of both breasts. The patient was noted to have progressive calcifications at the Biozorb site likely fat necrosis. Six-month follow-up with a right breast mammogram was recommended. No lesions of concern were identified in the left breast. The patient states she can still feel the Biozorb present. The patient is presently on anastrozole., She does complain of some pain in her hips extending down into her feet. She was seen by Dr. James. He was taken off the anastrozole for them month however it made no difference in the discomfort so we put her back on. Additionally the patient does have a history of ulcerative colitis which flared in May and she is presently on humira and steroids. Family History: sister: diagnosed with carcino-sarcoma of the uterus/metastatic father: colon and mesothelioma Paternal grandmother: Uterine cancer Maternal grandmother: Pancreatic cancer Hormonal History: menarche: 10 ; 2, 3 children, breast fed:yes, age at first: 21 menopause: hysterectomy at 37 for prolapse uterus, did not take ovaries BCP: 20 years hormones: estrogen supplements for two years, and cream for 1 year, is now on anestrazole Medical history: Ulcerative colitis Macular degeneration Surgical history: Right breast lumpectomy/sentinal node biopsy gallbaldder hysterectomy sinus surgery Social Hsitory: smoke: none alcohol: none drugs: none ROS: constitutional: none HEENT: Negative Lungs: Asthma Heart: Is GI: Ulcerative colitis : Post-hysterectomy Musculoskeletal: Hip and leg pain Hematologic: negative Psychiatric: Negative ALLERGIES: shellfish Objective - Vital Signs Vital signs: Vital Signs Temp 97.8 F 10/19/19 10:56 Pulse 63 10/19/19 10:56 Resp 18 01/02/20 10:56 BP 157/92 10/19/19 10:56 Pulse Ox 96 10/19/19 10:56 Intake & Output 10/18/19 10/19/19 10/19/19 18:59 06:59 18:59 Weight 74.389 kg - Exam BMI 29.1 - Constitutional Constitutional Comment(s): face swollen realted to steroids General appearance: Present: average body habitus - EENT Eyes: Present: EOMI ENT: Present: hearing grossly normal - Neck Neck: Present: normal ROM - Respiratory Respiratory: bilateral: CTA - Cardiovascular Rhythm: regular Heart sounds: normal: S1, S2 - Gastrointestinal General gastrointestinal: Present: normal bowel sounds, soft - Integumentary Integumentary: Present: normal turgor - Musculoskeletal Musculoskeletal: Present: gait normal - Psychiatric Psychiatric: Present: A&O x's 3, appropriate affect, intact judgment & insight - Additional findings Additional findings: breast exam: Right breast: Well-healed scar from prior surgery, skin thickening related to radiation, multiple positional exam no dominant masses or nodules of concern Right axilla: No adenopathy of concern left breast: Multi-positional exam no dominant masses or nodules of concern Left axilla: No adenopathy of concern Assessment and Plan Assessment: Impression: 1. Stage IA right breast cancer, no evidence of recurrence 2. Fibrocystic breast changes 3. Skin changes right breast related to radiation therapy 4. BioSorb not completely dissolved right breast 5. Abnormal mammogram right breast 6. Patient on anastrozole 7. Recent relapse of ulcerative colitis patient on Humira and steroids, this could result in some immunosuppression patient follow closely Plan: 1. Repeat right breast mammogram in 6 months with physician exam at that time 2. Close surveillance secondary to Humira and steroids which could result in some immunosuppression CC: DR. Ogden Encounter approximately 25 minutes: Greater than 50% of time spent in planning and counseling Time with Patient: Less than 30
== END ==
LOC: WWCWWP 10:21
PROVIDERS: ATTEND Surgery
DX: Z53.9 Procedure and treatment not carried out, unspecified reason (principal)

== ENCOUNTER 2020-03-17 15:18 | Emergency (ER) | payer BC ==
[2020-03-17 15:24] VITALS: TEMP 97.9
--- NOTE | 2020-03-17 15:24 | ED ---
Fall HPI - General Chief Complaint: Fall Stated Complaint: Arm Injury Time Seen by Provider: 03/17/20 15:20 - History of Present Illness Initial Comments: The patient is a 59-year-old female with past medical history of hypertension who presents emergency room and after she tripped over a baby gate. She broke her fall on outstretched right hand. She is right-hand dominant. She denies hitting her head or having any loss of consciousness. Denies any headaches or neck pain. No chest pain or shortness of breath. Pain is located around the right shoulder. Patient was given 10 mg of morphine by EMS prior to arrival. She denies any elbow or wrist pain. No numbness or tingling into her hands. Denies any chest pain or shortness of breath. No abdominal pain. No pain into her lower extremities. There are no other alleviating, precipitating or modifying factors - Related Data Home Medications Medication Instructions Recorded Confirmed Mometasone/Formoterol [Dulera 200 2 puff INHALATION RT-BID 08/13/17 10/19/19 Mcg/5 Mcg Inhaler] Cetirizine HCl [Zyrtec] 10 mg PO DAILY 09/16/17 10/19/19 Cranberry Fruit Extract [Cranberry] 200 mg PO HS 09/16/17 10/19/19 Multivitamin,Therapeutic [Thera] 1 each PO QAM 09/16/17 10/19/19 Pseudoephedrine [Sudafed] 30 mg PO Q6H PRN 09/16/17 10/19/19 Anastrozole [Arimidex] 1 mg PO QAM 03/03/18 10/19/19 Calcium Carbonate [Calcium] 600 mg PO BID 06/16/18 10/19/19 Mesalamine [Lialda] 4.8 gm PO QAM 06/16/18 10/19/19 Oxymetazoline 0.05% Nasl [place] 2 spray EA NOSTRIL DAILY PRN 06/16/18 10/19/19 [Afrin 0.05% Nasal [place]] Adalimumab [Humira] 80 mg SQ DAILY 10/19/19 10/19/19 Previous Rx's Medication Instructions Recorded Hydrocodone/Acetaminophen [[place] 1 tab PO Q4HR PRN #18 tab 03/17/20 5-325] Allergies Allergy/AdvReac Type Severity Reaction Status Date / Time codeine Allergy Anaphylaxis Verified 03/17/20 15:24 Penicillins Allergy Rash/Hives Verified 03/17/20 15:24 shellfish derived [Shellfish] Allergy Swelling Verified 03/17/20 15:24 Review of Systems ROS Statement: Those systems with pertinent positive or pertinent negative responses have been documented in the HPI. ROS Other: All systems not noted in ROS Statement are negative. Past Medical History Past Medical History: Asthma, GERD/Reflux, Hypertension Additional Past Medical History / Comment(s): Seasonal allergies; ulcerative colitis; History of Any Multi-Drug Resistant Organisms: None Reported Past Surgical History: Adenoidectomy, Breast Surgery, Cholecystectomy, Hernia Repair, Hysterectomy, Tonsillectomy Additional Past Surgical History / Comment(s): Sinus surgery, Breast bx. colonoscopy. States bx. came back positive for cancer. LUMPECTOMY RIGHT BREAST 09/2017 Past Anesthesia/Blood Transfusion Reactions: Previous Problems w/ Anesthesia, Postoperative Nausea & Vomiting (PONV) Additional Past Anesthesia/Blood Transfusion Reaction / Comment(s): Following hysterectomy/hernia repair experienced PONV. Following sinus surgery experienced tachycardia Past Psychological History: Anxiety Smoking Status: Never smoker Past Alcohol Use History: Rare Past Drug Use History: None Reported - Past Family History Mother Family Medical History: No Reported History Father Family Medical History: Cancer Additional Family Medical History / Comment(s): Colon Course Vital Signs 03/17/20 03/17/20 03/17/20 15:19 16:24 17:09 Temperature 97.9 F Pulse Rate 78 88 73 Respiratory 16 18 16 Rate Blood Pressure 173/88 157/78 O2 Sat by Pulse 97 96 95 Oximetry 03/17/20 03/17/20 03/17/20 17:10 17:30 18:00 Temperature Pulse Rate 81 75 71 Respiratory 16 14 14 Rate Blood Pressure 157/78 O2 Sat by Pulse 92 L 92 L 92 L Oximetry 03/17/20 18:42 Temperature Pulse Rate 86 Respiratory 16 Rate Blood Pressure 124/68 O2 Sat by Pulse 95 Oximetry Medical Decision Making - Medical Decision Making Upon arrival the patient is placed into room 4. A thorough history and physical exam was performed. Patient is neurovascularly intact. X-rays are performed patient's right shoulder and humerus which demonstrated impacted, nondisplaced proximal humeral fracture. The patient was given additional 0.5 mg dose of Dilaudid and 15 mg of Toradol. I discussed the diagnosis, differential and treatment options. At this time the patient was placed in a sling. She is given a prescription for [place]. She will be given orthopedic follow-up. She is to nonweight bear with right upper extremity. She has any new or worsening symptoms she should return to the emergency room. Patient was in agreement treatment plan she was discharged home in stable condition Disposition Clinical Impression: Fall, Fx humeral neck Disposition: HOME SELF-CARE Condition: Stable Instructions (If sedation given, give patient instructions): Proximal Humerus Fracture (ED) Additional Instructions: Please follow up with orthopedic doctor in regards to your fracture. Return to the emergency department for any new or worsening symptoms Prescriptions: Hydrocodone/Acetaminophen [[place] 5-325] 1 tab PO Q4HR PRN #18 tab PRN Reason: Pain Is patient prescribed a controlled substance at d/c from ED?: Yes When asked, does pt state using other controlled substances?: No If prescribed controlled substance>3 days was MAPS reviewed?: Prescribed <3 Days If opioid is for acute pain is fill amount 7 days or less?: Yes If Rx opioid, was Start Talking consent form obtained?: Yes Referrals: Dirk Ogden DO [Primary Care Provider] - 1-2 days Nikos Garcia MD [STAFF PHYSICIAN] - 1-2 days Time of Disposition: 16:56
[2020-03-17] MEDS ORDERED: ONDANSETRON 4 MG/2 ML VIAL IVP STA (15:45)
--- NOTE | 2020-03-17 16:30 | XR ---
EXAMINATION TYPE: XR shoulder complete RT DATE OF EXAM: 03/17/2020 COMPARISON: Chest x-ray 06/16/2018 HISTORY: Fall. Pain. TECHNIQUE: 3 views FINDINGS: There is impacted and comminuted fracture of the humeral neck. There is no significant disp lacement. There is no dislocation. Scapula appears intact. There is fracture of the greater tuberosit y. IMPRESSION: Acute nondisplaced comminuted humeral neck fracture.
--- NOTE | 2020-03-17 16:31 | XR ---
EXAMINATION TYPE: XR humerus RT DATE OF EXAM: 03/17/2020 COMPARISON: NONE HISTORY: Pain after a fall TECHNIQUE: 2 views FINDINGS: There is comminuted slightly impacted fracture of the humeral neck. There is no dislocation . The elbow joint is intact. There is no sign of elbow joint effusion. IMPRESSION: Slightly impacted comminuted humeral neck fracture without significant displacement.
[2020-03-17] MEDS ORDERED: KETOROLAC 30 MG/ML 1 ML VIAL IVP STA (16:49)
[2020-03-17] MEDS ORDERED: HYDROmorphone 0.5 MG/0.5 ML SYRINGE IVP STA (16:49)
[2020-03-17 18:44] VITALS: BP 124/68; PULSE 86; RESP 16
== END 2020-03-17 18:44 | disposition home or self-care (01) ==
LOC: EC 15:18
DX: S42.214A Unspecified nondisplaced fracture of surgical neck of right humerus, initial encounter for closed fracture (principal); I10 Essential (primary) hypertension; J45.909 Unspecified asthma, uncomplicated; K51.90 Ulcerative colitis, unspecified, without complications; Z79.811 Long term (current) use of aromatase inhibitors; Z79.51 Long term (current) use of inhaled steroids; Z79.899 Other long term (current) drug therapy; Z88.0 Allergy status to penicillin; Z88.5 Allergy status to narcotic agent; Z91.013 Allergy to seafood; Z85.3 Personal history of malignant neoplasm of breast; Z90.49 Acquired absence of other specified parts of digestive tract; Z90.710 Acquired absence of both cervix and uterus; W01.0XXA Fall on same level from slipping, tripping and stumbling without subsequent striking against object, initial encounter; Y92.009 Unspecified place in unspecified non-institutional (private) residence as the place of occurrence of the external cause
CPT/HCPCS: 99283; 96374; 96375 ×2; 73030; 73060; J2405; J1885; J1170

== ENCOUNTER → 2020-03-30 | Outpatient (CLI) | payer BC ==
--- NOTE | 2020-03-31 19:55 | CT ---
EXAMINATION TYPE: CT shoulder RT wo con DATE OF EXAM: 03/30/2020 COMPARISON: Radiograph 03/17/2020 HISTORY: 59-year-old female Nondisplaced fracture of greater tuberosity TECHNIQUE: Contiguous axial scanning of the right shoulder without IV contrast. Coronal and sagittal reconstructions performed. 3-D reconstructions generated on a dedicated independent workstation. CT DLP: 273 mGycm Automated exposure control for dose reduction was used. FINDINGS: There is a comminuted fracture of the proximal right humerus. Surgical neck component shows very mini mal 4 mm of anterior displacement and minimal anterior apex angulation. There is impaction of up to 9 mm posteriorly and comminution of the posterior greater tuberosity with out any significant displacement. No atrophy of the rotator cuff musculature. Mild to moderate degenerative change at the acromioclavicular joint. The glenohumeral joint itself appears intact. No additional acute fracture is seen. Visualized right hemithorax is clear. IMPRESSION: 1. COMMINUTED FRACTURE OF THE PROXIMAL RIGHT HUMERUS. THERE IS A SURGICAL NECK FRACTURE COMPONENT WIT H MINIMAL 4 MM ANTERIOR DISPLACEMENT AND MINIMAL ANTERIOR APEX ANGULATION. 2. THERE IS 9 MM OF IMPACTION POSTERIORLY AND COMMINUTED FRACTURE OF THE POSTERIOR ASPECT OF THE GREA TER TUBEROSITY WITHOUT SIGNIFICANT DISPLACEMENT OF FRAGMENTS.
== END | disposition home or self-care (01) ==
LOC: RADCTMAIN 07:03
PROVIDERS: ATTEND Orthopaedic Surgery
DX: S42.201A Unspecified fracture of upper end of right humerus, initial encounter for closed fracture (principal); S42.211A Unspecified displaced fracture of surgical neck of right humerus, initial encounter for closed fracture

== ENCOUNTER → 2020-04-25 | Outpatient (CLI) | payer BC ==
--- NOTE | 2020-04-25 09:44 | P.PN ---
Subjective Progress Note Date: 04/25/20 Principal diagnosis: stage IA right breast cancer surveillance Marce is a 58-year-old white female status post right breast lumpectomy and radiation therapy. Her surgery was in 2016. This was performed for a T1b N0 M0 ER+Pr+HER-2/eileen - tumor. She underwent needle localization right breast lumpectomy and sentinel node biopsy. Pathology revealed an 8 mm focus of invasive mammary carcinoma grade 2. Margins were negative, 4 sentinel nodes were negative. The patient completed radiation therapy and [id number]. The patient at this time has no complaints related to her breasts. The patient's last bilateral mammogram was on August 17. This was done of both breasts. The patient was noted to have progressive calcifications at the Biozorb site likely fat necrosis. Six-month follow-up with a right breast mammogram was recommended. No lesions of concern were identified in the left breast. The patient is presently on anastrozole., She does complain of some pain in her hips extending down into her feet. She was seen by Dr. James. He was taken off the anastrozole for them month however it made no difference in the discomfort so we put her back on. Additionally the patient does have a history of ulcerative colitis which flared in May and she is presently on humira and steroids. The patient was scheduled for repeat right breast mammogram in 04/15/2020. However she broke her right arm and they were unable to do the radiograph. She tripped and fell. She just started physical therapy. And will have the mammogram rescheduled. The patient at this time complains of bilateral breast discomfort. She is not feeling any new lumps masses or nodules in either breast. Caffeine: Occasional Smoking: Negative Theophylline: Occasional Family History: sister: diagnosed with carcino-sarcoma of the uterus/metastatic father: colon and mesothelioma Paternal grandmother: Uterine cancer Maternal grandmother: Pancreatic cancer Hormonal History: menarche: 10 ; 3, 3 children, breast fed:yes, age at first: 21 menopause: hysterectomy at 37 for prolapse uterus, did not take ovaries BCP: 20 years hormones: estrogen supplements for two years, and cream for 1 year, is now on anestrazole Medical history: Ulcerative colitis Macular degeneration fell and fracture of the right arm about 7 weeks ago/ jsut started physical therapy Surgical history: Right breast lumpectomy/sentinal node biopsy gallbaldder hysterectomy sinus surgery Social Hsitory: smoke: none alcohol: none drugs: none ROS: constitutional: none HEENT: Negative Lungs: Asthma Heart: Is GI: Ulcerative colitis : Post-hysterectomy Musculoskeletal: Hip and leg pain Hematologic: negative Psychiatric: Negative ALLERGIES: shellfish Objective - Constitutional General appearance: Present: average body habitus - EENT Eyes: Present: EOMI ENT: Present: hearing grossly normal - Neck Neck: Present: normal ROM - Respiratory Respiratory: bilateral: CTA - Cardiovascular Rhythm: regular Heart sounds: normal: S1, S2 - Gastrointestinal General gastrointestinal: Present: soft - Integumentary Integumentary: Present: normal turgor - Musculoskeletal Musculoskeletal: Present: gait normal - Psychiatric Psychiatric: Present: A&O x's 3, appropriate affect, intact judgment & insight - Additional findings Additional findings: breast exam: 3XL sports bra inspection: grade three ptosis bilateral palpation: right breast: well healed scar from prior surgery, skin thickening related to radiation, no dominant masses or nodules of concern and multiple positional exam Right axilla: No adenopathy of concern Left breast multiple position exam fibrocystic changes, no dominant masses or nodules of concern Left axilla: No adenopathy of concern Assessment and Plan Assessment: Impression: 1. Recent fracture right arm, starting physical therapy; therefore right breast mammogram was scheduled for April 15 and delayed 2. Fibrocystic breast changes 3. No evidence of recurrent right breast cancer Plan: 1. Bilateral mammogram in July 2020 2. Appointment at that time 3. Right breast mammogram as soon as she can tolerated related to the fracture of her right arm in follow-up after this CC: Dr. Ogden encounter 20 minutes, > 50% of time in planning and counselling
[2020-04-26 10:01] VITALS: BP 168/93; PULSE 94; RESP 16; TEMP 98
== END | disposition home or self-care (01) ==
LOC: WWCWWP 09:26
PROVIDERS: ATTEND Surgery
DX: Z53.9 Procedure and treatment not carried out, unspecified reason (principal)

== ENCOUNTER 2020-06-14 09:03 | Day surgery (SDC) | payer BC ==
[2020-06-12 13:20] VITALS: BMI 27.1
[~2020-06-14 09:03] MED LIST changes: +LIDOCAINE 1% (10MG/ML) FOR IV START INTRADERMA PRN; -MIDAZOLAM 2 MG/2 ML VIAL IV PRN
[2020-06-14 09:50] VITALS: TEMP 97.3
[2020-06-14 10:02] LABS: Glucose,Whole Blood 83 mg/dL (75-99)
[2020-06-14] MEDS ORDERED: PROPOFOL 10 MG/ML 20 ML VIAL IV ONE (11:09)
--- NOTE | 2020-06-14 11:23 | P.PCN ---
Date of Procedure: 06/14/20 Procedure(s) Performed: BRIEF HISTORY: Patient is a 60-year-old pleasant female scheduled for an elective colonoscopy as a part of evaluation of long-standing history of ulcerative colitis diagnosed in 2012. Lately has been having some constipation and rectal bleeding. PROCEDURE PERFORMED: Colonoscopy With multiple random biopsies PREOPERATIVE DIAGNOSIS]. Long-standing history of ulcerative colitis IV sedation per Anesthesia. PROCEDURE: After informed consent was obtained, the patient, was brought into the endoscopy unit. IV sedation was administered by Anesthesia under continuous monitoring. Digital rectal examination was normal. Initially the Olympus CF-160 flexible video colonoscope was then inserted in the rectum, gradually advanced into the cecum without any difficulty. Careful examination was performed as the scope was gradually being withdrawn. Ileocecal valve and the appendiceal orifice were visualized and appeared normal. Prep was excellent. Mucosa of the cecum, ascending colon, transverse colon appeared normal. There were multiple pseudopolyps noted in the, descending colon and multiple biopsies were done from this area. Mucosa of the sigmoid colon, and no rectum had patchy areas of erythema with mucosal granularity and friability consistent with mild colitis and biopsies were done from this area. Retroflexion was performed in the rectum and no lesions were seen. The patient tolerated the procedure well. IMPRESSION: Mild active colitis involving the entire colon up to 60 cm from the anal verge with mild mucosal erythema and granularity noted mostly in the rectum and sigmoid colon. Multiple scattered pseudopolyps noted in the entire descending colon Right colon appeared normal. RECOMMENDATIONS: Findings of this examination were discussed with the patientas well as a family. She was advised to follow with the biopsy results. she will be seen in office in 3-4 weeks.].
[2020-06-14 12:02] VITALS: BP 184/99; PULSE 65; RESP 20
== END 2020-06-14 12:06 | disposition home or self-care (01) ==
LOC: ORWHC2ENDO 09:03
PROVIDERS: ATTEND Internal Medicine Gastroenterology
DX: K51.911 Ulcerative colitis, unspecified with rectal bleeding (principal); K63.5 Polyp of colon; K59.00 Constipation, unspecified; J45.909 Unspecified asthma, uncomplicated; K21.9 Gastro-esophageal reflux disease without esophagitis; Z88.0 Allergy status to penicillin; Z88.5 Allergy status to narcotic agent; Z79.899 Other long term (current) drug therapy; Z79.811 Long term (current) use of aromatase inhibitors; Z79.52 Long term (current) use of systemic steroids; Z79.51 Long term (current) use of inhaled steroids; Z91.013 Allergy to seafood; Z98.890 Other specified postprocedural states; Z90.89 Acquired absence of other organs; Z90.49 Acquired absence of other specified parts of digestive tract
CPT/HCPCS: 88305; 45380; J2704

== ENCOUNTER → 2020-07-04 | Outpatient (CLI) | payer BC ==
--- NOTE | 2020-07-04 12:00 | MM ---
Reason for exam: additional evaluation requested from prior study. Last mammogram was performed 11 months ago. History: Patient is postmenopausal and has history of breast cancer at age 57. Radiation therapy of the right breast, October 2017. Benign US breast aspiration single RT of the right breast, September 20, 2017. Malignant MG pre op needle loc RT of the right breast, September 20, 2017. Malignant US breast localization RT of the right breast, September 20, 2017. Lumpectomy of the right breast, September 20, 2017. Malignant US biopsy breast VAD RT of the right breast, August 16, 2017. Took hormonal contraceptives for 20 years. Took estrogen for 2 years. Taking antineoplastic beginning at age 57. Physical Findings: Nurse did not find any significant physical abnormalities on exam. MG 3D Diag Mammo W/Cad RT CC and MLO view(s) were taken of the right breast. Prior study comparison: August 17, 2019, bilateral MG 3d diag mammo w/cad MARCY. August 15, 2018, bilateral MG 3d diag mammo w/cad MARCY. The breast tissue is heterogeneously dense. This may lower the sensitivity of mammography. Post operative changes right breast. No significant new findings when compared with previous films. These results were verbally communicated with the patient and result sheet given to the patient on 07/04/20. ASSESSMENT: Benign, BI-RAD 2 RECOMMENDATION: Follow-up diagnostic mammogram of both breasts in 1 month. Back on schedule for July 2020.
== END | disposition home or self-care (01) ==
LOC: RADMAMWWP 10:08
PROVIDERS: ATTEND Surgery
DX: R92.8 Other abnormal and inconclusive findings on diagnostic imaging of breast (principal); Z85.3 Personal history of malignant neoplasm of breast
CPT/HCPCS: 77061; 77065

== ENCOUNTER → 2020-07-11 | Outpatient (CLI) | payer BC ==
[2020-07-11 12:00] VITALS: BP 177/93; PULSE 83; RESP 18; TEMP 98.2
--- NOTE | 2020-07-11 12:00 | P.PN ---
Subjective Progress Note Date: 07/11/20 Principal diagnosis: stage IA right breast cancer Marce is a 60-year-old white female status post right breast lumpectomy and radiation therapy. Her surgery was in 2016. This was performed for a T1b N0 M0 ER+Pr+HER-2/eileen - tumor. She underwent needle localization right breast l umpectomy and sentinel node biopsy. Pathology revealed an 8 mm focus of invasive mammary carcinoma grade 2. Margins were negative, 4 sentinel nodes were negative. The patient completed radiation therapy and . The patient at this time has no complaints related to her breasts. She underwent a right breast mammogram on , this was felt to be benign BIRADS 2. Her last bilateral breast mammogram was in July 2019, nothing of concern was noted in the left breast. The patient is presently on anastrozole., She does complain of some pain in her hips extending down into her feet. She was seen by Dr. James. He was taken off the anastrozole for them however it made no difference in the discomfort so he put her back on. Additionally the patient does have a history of ulcerative colitis which flared in May and she is presently on humira and steroids. The patient was scheduled for repeat right breast mammogram in 04/15/2020. However she broke her right arm and they were unable to do the radiograph. She tripped and fell. She completed physical therapy and her arm when she fell and broke her left leg. She is presently in a wheelchair. The patient at this time complains of bilateral breast discomfort. She is not feeling any new lumps masses or nodules in either breast. She is not complaining of any nipple discharge or skin changes. She had a bone density performed last week the results of which are not yet available. Caffeine: Occasional Smoking: Negative Theophylline: Occasional Family History: sister: diagnosed with carcino-sarcoma of the uterus/metastatic father: colon and mesothelioma Paternal grandmother: Uterine cancer Maternal grandmother: Pancreatic cancer Hormonal History: menarche: 10 ; 3, 3 children, breast fed:yes, age at first: 21 menopause: hysterectomy at 37 for prolapse uterus, did not take ovaries BCP: 20 years hormones: estrogen supplements for two years, and cream for 1 year, is now on anestrazole Medical history: Ulcerative colitis Macular degeneration fell and fracture of the right arm about March 17,weeks ago/ fracture right leg Sept 11 Surgical history: Right breast lumpectomy/sentinal node biopsy gallbaldder hysterectomy sinus surgery Social Hsitory: smoke: none alcohol: none drugs: none ROS: constitutional: none HEENT: Negative Lungs: Asthma Heart: Is GI: Ulcerative colitis : Post-hysterectomy Musculoskeletal: Hip and leg pain; recent fracture right arm and right leg after falling on 2 separate occasions Hematologic: negative Psychiatric: Negative ALLERGIES: shellfish Objective - Exam BMI : 26.7 - Constitutional General appearance: Present: average body habitus - EENT Eyes: Present: EOMI ENT: Present: hearing grossly normal - Neck Neck: Present: normal ROM - Respiratory Respiratory: bilateral: CTA - Cardiovascular Rhythm: regular Heart sounds: normal: S1, S2 - Gastrointestinal General gastrointestinal: Present: soft - Integumentary Integumentary: Present: normal turgor - Musculoskeletal Musculoskeletal Comment(s): in wheel chair - Psychiatric Psychiatric: Present: A&O x's 3, appropriate affect, intact judgment & insight - Additional findings Additional findings: breast exam: sports bra: 3X inspection:bilateral grade 2 ptosis Palpation: Right breast: Postop changes secondary to 2 lumpectomy, no dominant masses or nodules of concern, no evidence of recurrent cancer fibrocystic changes Right axilla: No adenopathy of concern Left breast: Polycystic changes, no dominant masses or nodules of concern Left axilla: No adenopathy of concern Assessment and Plan Assessment: Impression: 1. Patient status post right breast lumpectomy, no evidence of recurrent cancer 2. Fibrocystic breast changes 3. Recent fracture of right arm and right leg she is being treated for this and a bone density has recently been performed 4. Ulcerative colitis, patient on steroids and Humira Plan: 1. Patient due for left breast mammogram in July to have this done in follow-up after 2. If left breast mammogram in July is benign repeat bilateral mammogram in July 2021 3. Patient to call sooner if any questions or concerns Cc: Dr. Alin Ratliff encounter 20 minutes, > 50% of time in planning and counselling
== END | disposition home or self-care (01) ==
LOC: WWCWWP 11:14
PROVIDERS: ATTEND Surgery
DX: Z53.9 Procedure and treatment not carried out, unspecified reason (principal)

== ENCOUNTER → 2020-09-13 | Outpatient (CLI) | payer BC ==
--- NOTE | 2020-09-16 09:37 | MM ---
Reason for exam: follow-up at short interval from prior study. Last mammogram was performed 2 months ago. History: Patient is postmenopausal and has history of breast cancer at age 57. Radiation therapy of the right breast, October 2017. Benign US breast aspiration single RT of the right breast, September 20, 2017. Malignant MG pre op needle loc RT of the right breast, September 20, 2017. Malignant US breast localization RT of the right breast, September 20, 2017. Lumpectomy of the right breast, September 20, 2017. Malignant US biopsy breast VAD RT of the right breast, August 16, 2017. Took hormonal contraceptives for 20 years. Took estrogen for 2 years. Taking antineoplastic for 2 years beginning at age 57. Physical Findings: Nurse did not find any significant physical abnormalities on exam. MG 3D Diag Mammo W/Cad LT CC, MLO, and spot compression CC view(s) were taken of the left breast. Prior study comparison: July 04, 2020, right breast MG 3d diag mammo w/cad RT. August 17, 2019, bilateral MG 3d diag mammo w/cad MARCY. The breast tissue is heterogeneously dense. This may lower the sensitivity of mammography. No significant new findings when compared with previous films. These results were verbally communicated with the patient and result sheet given to the patient on 09/13/20. ASSESSMENT: Benign, BI-RAD 2 RECOMMENDATION: Routine screening mammogram of both breasts in 1 year.
== END | disposition home or self-care (01) ==
LOC: RADMAMWWP 10:51
PROVIDERS: ATTEND Surgery
DX: R92.8 Other abnormal and inconclusive findings on diagnostic imaging of breast (principal)
CPT/HCPCS: 77061; 77065

== ENCOUNTER → 2020-09-20 | Outpatient (CLI) | payer BC ==
[2020-09-20 11:33] VITALS: BP 162/83; PULSE 70; RESP 16; TEMP 97.6
--- NOTE | 2020-09-20 12:01 | P.PN ---
Subjective Progress Note Date: 09/20/20 Principal diagnosis: patient here for mammogram results left breast stage IA right breast cancer Marce is a 60-year-old white female status post right breast lumpectomy and radiation therapy. Her surgery was in 2016. This was performed for a T1b N0 M0 ER+Pr+HER-2/eileen - tumor. She underwent needle localization right breast lumpectomy and sentinel node biopsy. Pathology revealed an 8 mm focus of invasive mammary carcinoma grade 2. Margins were negative, 4 sentinel nodes wer e negative. The patient completed radiation therapy and . The patient at this time has no complaints related to her breasts. She underwent a right breast mammogram on , this was felt to be benign BIRADS 2. Her last bilateral breast mammogram was in July 2019, nothing of concern was noted in the left breast. The patient is presently on anastrozole., She does complain of some pain in her hips extending down into her feet. She was seen by Dr. James. He was taken off the anastrozole for them however it made no difference in the discomfort so he put her back on. Additionally the patient does have a history of ulcerative colitis which flared in May and she is presently on humira and steroids. The patient was scheduled for repeat right breast mammogram on 04/15/2020. However she broke her right arm and they were unable to do the radiograph. She tripped and fell. She completed physical therapy for her arm when she fell and broke her left leg. She is presently using a cane. The patient at this time is not complaining of breast pain. She is not feeling any new lumps masses or nodules in either breast. She is not complaining of any nipple discharge or skin changes. She had a bone density performed which showed osteopenia in her back. This was done in June. She was diagnosed with a DVT in her left leg on 07-01-20. She was started on eliquis, which she is still taking. She had a left breast mammogram on 09-13-20 which was benign BIRAD 2. Caffeine: Occasional Smoking: Negative Theophylline: Occasional Family History: sister: diagnosed with carcino-sarcoma of the uterus/metastatic father: colon and mesothelioma Paternal grandmother: Uterine cancer Maternal grandmother: Pancreatic cancer Hormonal History: menarche: 10 ; 3, 3 children, breast fed:yes, age at first: 21 menopause: hysterectomy at 37 for prolapse uterus, did not take ovaries BCP: 20 years hormones: estrogen supplements for two years, and cream for 1 year, is now on anestrazole Medical history: Ulcerative colitis Macular degeneration fell and fracture of the right arm about March 17,weeks ago/ fracture left leg Sept 11 Surgical history: Right breast lumpectomy/sentinal node biopsy gallbaldder hysterectomy sinus surgery Social Hsitory: smoke: none alcohol: none drugs: none ROS: constitutional: none HEENT: Negative Lungs: Asthma Heart: Is GI: Ulcerative colitis : Post-hysterectomy Musculoskeletal: Hip and leg pain; recent fracture right arm and right leg after falling on 2 separate occasions Hematologic: negative Psychiatric: Negative ALLERGIES: shellfish Breast examination was just done here in June 2020 lesions of concern were noted at that time which we will in interventional biopsy At this time the patient has declined physical examination as it was just done in June 2020. Impression: 1. Right breast lumpectomy/sentinel node biopsy 2016 for stage IA right breast cancer no evidence of recurrence 2. Patient is presently taking anastrozole ( 2% risk of blood clots) patient will discuss with medical oncology 3. Macular degeneration 4. Ulcerative colitis 5. Recent left leg DVT on a liquid was 6. Fell and fractured her right arm and then several weeks later fracture of the left leg Plan: 1. At this time would like to have the patient on a schedule for bilateral mammograms to be synchronized, would recommend that these be done in June 2021 2. Follow-up in 6 months for breast examination 3. Treatment of the DVT as per medicine CC: Dr. amado encounter: discussion for 10 minutes, total time discussion and planning Objective - Vital Signs Vital signs: Vital Signs Temp 97.6 F 09/20/20 11:29 Pulse 70 09/20/20 11:29 Resp 16 09/20/20 11:29 BP 162/83 09/20/20 11:29 Pulse Ox 96 09/20/20 11:29 Intake & Output 09/19/20 09/20/20 09/20/20 18:59 06:59 18:59 Weight 72.121 kg
== END | disposition home or self-care (01) ==
LOC: WWCWWP 11:08
PROVIDERS: ATTEND Surgery
DX: Z53.9 Procedure and treatment not carried out, unspecified reason (principal)

== ENCOUNTER → 2020-09-23 | Outpatient (CLI) | payer BC ==
--- NOTE | 2020-09-23 12:35 | US ---
EXAMINATION TYPE: US venous doppler duplex LE LT DATE OF EXAM: 09/23/2020 12:07 PM COMPARISON: Prior study July 11, 2020. CLINICAL HISTORY: M25.562 Pain in left leg; S82.102D. History of DVT, patient on blood thinner, pain and edema left leg SIDE PERFORMED: left TECHNIQUE: The lower extremity deep venous system is examined utilizing real time linear array sonog brittny with graded compression, doppler sonography and color-flow sonography. VESSELS IMAGED: Common Femoral Vein Deep Femoral Vein Greater Saphenous Vein * Femoral Vein Popliteal Vein Small Saphenous Vein * Proximal Calf Veins (* superficial vessels) Left Leg: non-occlusive DVT noted left femoral vein thru popliteal vein, thready flow with partial c ompression, appears to be improving since prior exam Grayscale, color doppler, spectral doppler imaging performed of the deep veins of the left lower extr emity. IMPRESSION: Partially occlusive left lower extremity thrombus shows interval improvement or partial resolution from prior study.
== END | disposition home or self-care (01) ==
LOC: RADUSWWP 11:37
PROVIDERS: ATTEND Orthopaedic Surgery
DX: I82.402 Acute embolism and thrombosis of unspecified deep veins of left lower extremity (principal); M19.072 Primary osteoarthritis, left ankle and foot; M85.862 Other specified disorders of bone density and structure, left lower leg

== ENCOUNTER → 2021-03-21 | Outpatient (CLI) | payer BC ==
[2021-03-21 10:52] VITALS: BP 165/94; PULSE 71; RESP 18; TEMP 98.1
--- NOTE | 2021-03-21 11:14 | P.PN ---
Subjective Progress Note Date: 03/21/21 Principal diagnosis: stage IA right breast cancer/ dx. 2016 stage IA right breast cancer Marce is a 60-year-old white female status post right breast lumpectomy and radiation therapy. Her surgery was in 2016. This was performed for a T1b N0 M0 ER+Pr+HER-2/eileen - tumor. She underwent needle localization right breast lumpectomy and sentinel node biopsy. Pathology revealed an 8 mm focus of invasive mammary carcinoma grade 2. Margins were negative, 4 sentinel nodes were negative. The patient completed radiation therapy on . The patient at this time has no complaints related to her breasts. She underwent a right breast mammogram on , this was felt to be benign BIRADS 2. Her last bilateral breast mammogram was in July 2019, nothing of concern was noted in the left breast. The patient is presently on anastrozole., She does complain of some pain in her hips extending down into her feet. She was seen by Dr. James. He was taken off the anastrozole for them however it made no difference in the discomfort so he put her back on. She is presently taking anastrazole. Additionally the patient does have a history of ulcerative colitis which flared in May 2020 she was treated with Humira and steroids, she is presently on Humira. The patient was scheduled for repeat right breast mammogram on 04/15/2020. However she broke her right arm and they were unable to do the radiograph. She tripped and fell. She completed physical therapy for her arm when she fell and broke her left leg. She is no longer using a cane. The patient at this time is not complaining of breast pain. She is not feeling any new lumps masses or nodules in either breast. She is not complaining of any nipple discharge or skin changes. She had a bone density performed which showed osteopenia in her back. This was done in June 2020. She was diagnosed with a DVT in her left leg on 07-01-20. She was started on eliquis, which she is still taking felt to be related to fracture. She is still on eliquis. She had a left breast mammogram on 09-13-20 which was benign BIRAD 2. She had a right breast mammogram on 07-04-20 which was benign BIRAD 2. Caffeine: Occasional Smoking: Negative chocolate: Occasional Family History: sister: diagnosed with carcino-sarcoma of the uterus/metastatic father: colon and mesothelioma Paternal grandmother: Uterine cancer Maternal grandmother: Pancreatic cancer Hormonal History: menarche: 10 ; 3, 3 children, breast fed:yes, age at first: 21 menopause: hysterectomy at 37 for prolapse uterus, did not take ovaries BCP: 20 years hormones: estrogen supplements for two years, and cream for 1 year, is now on anestrazole Medical history: Ulcerative colitis Macular degeneration fell and fracture of the right arm about March 17,weeks ago/ fracture left leg Sept 11 DVT left leg HTN Surgical history: Right breast lumpectomy/sentinal node biopsy gallbaldder hysterectomy sinus surgery Social Hsitory: smoke: none alcohol: none drugs: none ROS: constitutional: none HEENT: Negative Lungs: Asthma Heart: Is GI: Ulcerative colitis : Post-hysterectomy Musculoskeletal: Hip and leg pain; recent fracture right arm and right leg after falling on 2 separate occasions Hematologic: negative Psychiatric: Negative ALLERGIES: shellfish Objective - Vital Signs Vital signs: Vital Signs Temp 98.1 F 03/21/21 10:50 Pulse 71 03/21/21 10:50 Resp 18 03/21/21 10:50 BP 165/94 03/21/21 10:50 Pulse Ox 96 03/21/21 10:50 Intake & Output 03/20/21 03/21/21 03/21/21 18:59 06:59 18:59 Weight 73.936 kg - Exam BMI 28.9 - Constitutional General appearance: Present: average body habitus - EENT ENT: Present: hearing grossly normal - Neck Neck: Present: normal ROM - Respiratory Respiratory: bilateral: CTA - Cardiovascular Rhythm: regular Heart sounds: normal: S1, S2 - Musculoskeletal Musculoskeletal: Present: gait normal - Psychiatric Psychiatric: Present: A&O x's 3, appropriate affect, intact judgment & insight - Additional findings Additional findings: Breast exam: BRA: sports Bra XXX inspection: Bilateral grade 2 ptosis Palpation: Right breast: Multi-positional exam Well-healed scars and radiation changes from prior treatment, no dominant masses or nodules of concern, fibrocystic breast changes Right axilla: No adenopathy of concern Left breast: Multiple positional exam fibrocystic changes no dominant masses or nodules of concern Left axilla: No adenopathy of concern Assessment and Plan Assessment: Impression: Ulcerative colitis Macular degeneration fell and fracture of the right arm about March 17,weeks ago/ fracture left leg Sept 11 DVT left leg HTN Stage I a right breast cancer diagnosed 2016, no evidence of recurrence Plan: 1. Repeat bilateral mammogram August 2021 with physician exam at that time 2. Patient to call if any questions or concerns sooner 2. Patient continues on anastrozole Cc: Dr. Mitra Smith , Dr. Ogden
== END ==
LOC: WWCWWP 10:35
PROVIDERS: ATTEND Surgery
DX: H35.30 Unspecified macular degeneration (principal); K51.90 Ulcerative colitis, unspecified, without complications; S42.301A Unspecified fracture of shaft of humerus, right arm, initial encounter for closed fracture; Z85.3 Personal history of malignant neoplasm of breast; I10 Essential (primary) hypertension; Z86.718 Personal history of other venous thrombosis and embolism; Z98.890 Other specified postprocedural states; Z79.811 Long term (current) use of aromatase inhibitors; Z92.3 Personal history of irradiation; Z87.81 Personal history of (healed) traumatic fracture

== ENCOUNTER → 2021-09-15 | Outpatient (CLI) | payer BC ==
--- NOTE | 2021-09-15 10:44 | MM ---
Reason for exam: additional evaluation requested from prior study. Last mammogram was performed 1 year ago. History: Patient is postmenopausal and has history of breast cancer at age 57. Radiation therapy of the right breast, October 2017. Benign US breast aspiration single RT of the right breast, September 20, 2017. Malignant MG pre op needle loc RT of the right breast, September 20, 2017. Malignant US breast localization RT of the right breast, September 20, 2017. Lumpectomy of the right breast, September 20, 2017. Malignant US biopsy breast VAD RT of the right breast, August 16, 2017. Took hormonal contraceptives for 20 years. Took estrogen for 2 years. Taking antineoplastic for 2 years beginning at age 57. Physical Findings: Nurse did not find any significant physical abnormalities on exam. MG 3D Diag Mammo W/Cad MARCY Bilateral CC and MLO view(s) were taken. Prior study comparison: September 13, 2020, left breast MG 3d diag mammo w/cad LT. July 04, 2020, right breast MG 3d diag mammo w/cad RT. The breast tissue is heterogeneously dense. This may lower the sensitivity of mammography. Stable post operative changes right breast of lumpectomy. No significant new findings when compared with previous films. These results were verbally communicated with the patient and result sheet given to the patient on 09/15/21. ASSESSMENT: Benign, BI-RAD 2 RECOMMENDATION: Follow-up diagnostic mammogram of both breasts in 1 year.
== END | disposition home or self-care (01) ==
LOC: RADMAMWWP 09:55
PROVIDERS: ATTEND Surgery
DX: R92.2 Inconclusive mammogram (principal); Z85.89 Personal history of malignant neoplasm of other organs and systems; Z90.11 Acquired absence of right breast and nipple; Z78.0 Asymptomatic menopausal state
CPT/HCPCS: 77062; 77066

== ENCOUNTER → 2021-09-19 | Outpatient (CLI) | payer BC ==
[2021-09-19 11:43] VITALS: BP 155/94; PULSE 80; RESP 16; TEMP 97.9
--- NOTE | 2021-09-19 12:02 | P.PN ---
Subjective Progress Note Date: 09/19/21 Principal diagnosis: right breast cancer 2017 stage IA right breast cancer/ dx. 2016 stage IA right breast cancer Marce is a 61-year-old white female status post right breast lumpectomy and radiation therapy. Her surgery was in 2016. This was performed for a T1b N0 M0 ER+Pr+HER-2/eileen - tumor. She underwent needle localization right breast lumpectomy and sentinel node biopsy. Pathology revealed an 8 mm focus of invasive mammary carcinoma grade 2. Margins were negative, 4 sentinel nodes were negative. The patient completed radiation therapy on . The patient at this time has no complaints related to her breasts. The patient is presently on anastrozole., She does complain of some pain in her hips extending down into her feet. She was seen by Dr. James. She was taken off the anastrozole however it made no difference in the discomfort so he put her back on. She is presently taking anastrazole. Additionally the patient does have a history of ulcerative colitis which flared in May 2020 she was treated with Humira and steroids, she is presently on Humira. The patient was scheduled for repeat right breast mammogram on 04/15/2020. However she broke her right arm and they were unable to do the radiograph. She tripped and fell. She completed physical therapy for her arm when she fell and broke her left leg. She is no longer using a cane. The patient at this time is not complaining of breast pain. She is not feeling any new lumps masses or nodules in either breast. She is not complaining of any nipple discharge or skin changes. She had a bone density performed which showed osteopenia in her back. This was done in June 2020. She was diagnosed with a DVT in her left leg on 07-01-20. She was started on eliquis, which has been discontinued. she had a bilateral mammogram on [id number] which was benign BIRADS 2. Caffeine: Occasional Smoking: Negative chocolate: Occasional Family History: sister: diagnosed with carcino-sarcoma of the uterus/metastatic father: colon and mesothelioma Paternal grandmother: Uterine cancer Maternal grandmother: Pancreatic cancer Hormonal History: menarche: 10 ; 3, 3 children, breast fed:yes, age at first: 21 menopause: hysterectomy at 37 for prolapse uterus, did not take ovaries BCP: 21 years hormones: estrogen supplements for two years, and cream for 1 year, is now on anestrazole Medical history: Ulcerative colitis Macular degeneration fell and fracture of the right arm about March 17,weeks ago/ fracture left leg Sept 11 DVT left leg HTN Surgical history: Right breast lumpectomy/sentinal node biopsy gallbaldder hysterectomy sinus surgery Social Hsitory: smoke: none alcohol: none drugs: none ROS: constitutional: none HEENT: Negative Lungs: Asthma Heart: Is GI: Ulcerative colitis : Post-hysterectomy Musculoskeletal: Hip and leg pain; recent fracture right arm and right leg after falling on 2 separate occasions Hematologic: negative Psychiatric: Negative ALLERGIES: shellfish Objective - Vital Signs Vital signs: Vital Signs Temp 97.9 F 09/19/21 11:37 Pulse 80 09/19/21 11:37 Resp 16 09/19/21 11:37 BP 155/94 09/19/21 11:37 Pulse Ox Intake & Output 09/18/21 09/19/21 09/19/21 18:59 06:59 18:59 Weight 72.575 kg - Constitutional General appearance: Present: cooperative - EENT Eyes: Present: EOMI ENT: Present: hearing grossly normal - Neck Neck: Present: normal ROM - Respiratory Respiratory: bilateral: CTA - Cardiovascular Heart sounds: normal: S1, S2 - Gastrointestinal General gastrointestinal: Present: soft - Integumentary Integumentary: Present: normal turgor - Musculoskeletal Musculoskeletal: Present: gait normal - Psychiatric Psychiatric: Present: A&O x's 3, appropriate affect, intact judgment & insight - Additional findings Additional findings: Breast Exam: BRA: 3X sports bra inspection: Bilateral grade 3 ptosis, well-healed scar right breast from prior surgery Palpation: Right breast: Multiple positional exam fibrocystic changes no dominant masses or nodules of concern Right axilla: No adenopathy of concern Left breast: Multiple positional exam fibrocystic changes no dominant masses or nodules of concern Left axilla: No adenopathy of concern Assessment and Plan Assessment: impression: 1. Stage I right breast cancer no evidence of recurrent cancer patient presently on anastrozole 2. Recent bilateral mammogram [id number] benign BIRADS 2 Plan: 1. Physician exam in 6 months patient to call sooner if any questions or concerns 2. Bilateral mammogram in 1 year CC: /Dr. Ogden
== END ==
LOC: WWCWWP 11:25
PROVIDERS: ATTEND Surgery
DX: Z85.3 Personal history of malignant neoplasm of breast (principal); I10 Essential (primary) hypertension; Z86.718 Personal history of other venous thrombosis and embolism; Z79.811 Long term (current) use of aromatase inhibitors; Z88.5 Allergy status to narcotic agent; Z88.0 Allergy status to penicillin; Z91.013 Allergy to seafood

== ENCOUNTER 2022-08-28 06:00 | Day surgery (SDC) | payer MEDICARE ==
[2022-08-26 13:08] VITALS: BMI 28.8
[2022-08-28 06:26] VITALS: RESP 20
[2022-08-28] MEDS: LACTATED RINGERS 1,000 ML IV SCH ×2 (06:38→06:59)
[2022-08-28] MEDS ORDERED: PROPOFOL 10 MG/ML 20 ML VIAL IV ONE (07:00)
--- NOTE | 2022-08-28 07:24 | P.PCN ---
Date of Procedure: 08/28/22 Procedure(s) Performed: Brief history: Patient is a pleasant scheduled for an elective upper endoscopy as well as colonoscopy as a part of evaluation of GERD and long-standing history of ulcerative colitis diagnosed in 2012. She is presently maintained on Humira injections every 2 weeks. He remains in clinical remission. Procedure performed: Esophagogastroduodenoscopy Colonoscopy with biopsy and snare polyp rectum Preoperative diagnosis: GERD Long-standing history of ulcerative colitis Anesthesia: MAC Procedure: After informed consent was obtained from the patient was brought into the endoscopy unit and IV sedation was administered by anesthesia under continuous monitoring. Initially upper endoscopy was done. The Olympus GF 160 video endoscope was inserted inserted into the mouth and esophagus intubated without any difficulty and was gradually advanced into the stomach and duodenum and carefully examined. The bulb and second part of the duodenum appeared normal. The scope was then withdrawn into the stomach adequately insufflated with air and upon careful examination the antrum and body, cardia and fundus appeared normal. The scope was then withdrawn into the esophagus. The GE junction was located at 40 cm to the incisors. It appeared regular with no erythema erosions or ulcerations. Rest of the esophagus appeared normal. Patient tolerated the procedure well. At this time the patient continued to remain sedation. Initial digital rectal examination was normal. Olympus CF 160 video colonoscope was then inserted into the rectum and gradually advanced to the cecum without any difficulty. Careful examination was performed as the scope was gradually being withdrawn. The prep was excellent. The cecum, had a 7 mm polyp removed by snare polypectomy. Mucosa of the ascending colon, appeared normal. In the transverse colon there was a 1 m polyp removed by snare polypectomy. Scattered pseudopolyps noted in the transverse colon, descending colon. Mucosa of the, sigmoid colon and rectum appeared normal. Random biopsies were done from the cecum to rectum at every 10 cm into well. Retroflexion was performed in the rectum and no lesions were noted. Patient tolerated the procedure well. Impression: 1. Upper endoscopy revealed mild antral gastritis and small hiatal hernia 2. Colonoscopy revealed a) 7 mm cecal polyp status post polypectomy b) 1 cm transverse colon polyp status post polypectomy c) scattered pseudopolyps in the transverse colon and descending colon d) no evidence of active colitis Recommendations: Findings of this examination were discussed with the patient as well as a family. She was advised to follow with the biopsy results. She will continue her current medications. Repeat colonoscopy in 2 years.
[2022-08-28 07:46] VITALS: BP 143/82; PULSE 95
== END 2022-08-28 08:17 | disposition home or self-care (01) ==
LOC: ORWHC2ENDO 06:00
PROVIDERS: ATTEND Internal Medicine Gastroenterology
DX: D12.0 Benign neoplasm of cecum (principal); D12.3 Benign neoplasm of transverse colon; K29.50 Unspecified chronic gastritis without bleeding; K51.90 Ulcerative colitis, unspecified, without complications; K62.89 Other specified diseases of anus and rectum; K21.9 Gastro-esophageal reflux disease without esophagitis; Z88.0 Allergy status to penicillin; Z88.5 Allergy status to narcotic agent; Z91.013 Allergy to seafood
CPT/HCPCS: 88305; 45380; 45385; 43239; J2704

== ENCOUNTER → 2022-09-17 | Outpatient (CLI) | payer MEDICARE ==
--- NOTE | 2022-09-17 11:23 | MM ---
Reason for Exam: Hx of breast cancer, conservation therapy. Last mammogram was performed 1 year(s) and 1 month(s) ago. Patient History: Menarche at age 10. First Full-Term at age 21. Hysterectomy at age 37. Postmenopausal. Breast cancer, right, age 57. Patient used Estrogen for 2 years. Patient used Hormonal Contraceptives for 20 years. 09/20/2017, Lumpectomy on the Right side. 09/20/2017, Malignant Core Biopsy on the right side. 09/20/2017, Malignant Core Biopsy on the right side. 09/20/2017, Benign Cyst Aspiration on the right side. 08/16/2017, Malignant Core Biopsy on the right side. 10/2017, Radiation Therapy on the right side. Tissue Density: There are scattered fibroglandular densities. Findings: Analyzed By CAD. Biozorb device with fat necrosis calcifications medial posterior right breast. Asymmetric density right MLO view middle to posterior depth above the retroareolar plane is unchanged. Unchanged postsurgical and posttreatment change right breast. Surgical clips right axilla. No significant change from prior exams. Overall Assessment: Benign, BI-RAD 2 Management: Screening Mammogram of both breasts in 1 year. 1. Patient should continue monthly self breast exams. 2. A clinical breast exam by your physician is recommended on an annual basis. 3. This exam should not preclude additional follow-up of suspicious palpable abnormalities. Results were given to the patient verbally at the time of exam. Electronically signed and approved by: Cornelia Alcantara M.D. Radiologist
== END | disposition home or self-care (01) ==
LOC: RADMAMWWP 10:47
PROVIDERS: ATTEND Surgery
DX: Z85.3 Personal history of malignant neoplasm of breast (principal); Z78.0 Asymptomatic menopausal state
CPT/HCPCS: 77066; G0279; 77062

== ENCOUNTER → 2022-09-24 | Outpatient (CLI) | payer MEDICARE ==
[2022-09-24 11:36] VITALS: BP 178/93; PULSE 91; RESP 17; TEMP 98.5
--- NOTE | 2022-09-24 11:38 | P.PN ---
Subjective Progress Note Date: 09/24/22 Principal diagnosis: stage IA right breast cancer stage IA right breast cancer/ dx. 2016 Marce is a 62-year-old white female status post right breast lumpectomy and radiation therapy. Her surgery was in 2016. This was performed for a T1b N0 M0 ER+Pr+HER-2/eileen - tumor. She underwent needle localization right breast lumpectomy and sentinel node biopsy. Pathology revealed an 8 mm focus of invasive mammary carcinoma grade 2. Margins were negative, 4 sentinel nodes were negative. The patient completed radiation therapy on . The patient at this time has no complaints related to her breasts. The patient is presently on anastrozole., She does complain of some pain in her hips extending down into her feet. She was seen by Dr. James. She was taken off the anastrozole however it made no difference in the discomfort so he put her back on. She is presently taking anastrazole. Additionally the patient does have a history of ulcerative colitis which flared in May 2020 she was treated with Humira and steroids, she is presently on Humira. The patient was scheduled for repeat right breast mammogram on 04/15/2020. However she broke her right arm and they were unable to do the radiograph. She tripped and fell. She completed physical therapy for her arm when she fell and broke her left leg. She is no longer using a cane. She had a bone density performed which showed osteopenia in her back. This was done in June 2020. She is taking calcium. She had a bone density done recently by Dr. James at [facility], I do not have those results. She was diagnosed with a DVT in her left leg on 07-01-20. She was started on el iquis, which has been discontinued. Time the patient is not complaining of any new lumps masses or nodules of concern in either breast. Is not complaining of any nipple discharge or skin changes. she had a bilateral mammogram on 09-17-22 which was benign BIRADS 2. Caffeine: Occasional Smoking: Negative chocolate: Occasional Family History: sister: diagnosed with carcino-sarcoma of the uterus/metastatic father: colon and mesothelioma Paternal grandmother: Uterine cancer Maternal grandmother: Pancreatic cancer Hormonal History: menarche: 10 ; 3, 3 children, breast fed:yes, age at first: 21 menopause: hysterectomy at 37 for prolapse uterus, did not take ovaries BCP: 20 years hormones: estrogen supplements for two years, and cream for 1 year, is now on anestrazole Medical history: Ulcerative colitis Macular degeneration fell and fracture of the right arm about March 17,weeks ago/ fracture left leg Sept 11 DVT left leg HTN Surgical history: Right breast lumpectomy/sentinal node biopsy gallbaldder hysterectomy sinus surgery Social Hsitory: smoke: none alcohol: none drugs: none ROS: constitutional: none HEENT: Negative Lungs: Asthma Heart: Is GI: Ulcerative colitis : Post-hysterectomy Musculoskeletal: Hip and leg pain; fracture right arm and right leg after falling on 2 separate occasions Hematologic: negative Psychiatric: Negative ALLERGIES: shellfish Objective - Constitutional General appearance: Present: cooperative - EENT Eyes: Present: EOMI ENT: Present: hearing grossly normal - Neck Neck: Present: normal ROM - Respiratory Respiratory: bilateral: CTA - Cardiovascular Rhythm: regular Heart sounds: normal: S1 - Integumentary Integumentary: Present: normal turgor - Musculoskeletal Musculoskeletal: Present: gait normal - Psychiatric Psychiatric: Present: A&O x's 3, appropriate affect, intact judgment & insight - Additional findings Additional findings: Breast Exam: BRA: 3X sports bra inspection: Bilateral grade 3 ptosis, well-healed scar right breast from prior surgery Palpation: Right breast: Multiple positional exam fibrocystic changes no dominant masses or nodules of concern Right axilla: No adenopathy of concern Left breast: Multiple positional exam fibrocystic changes no dominant masses or nodules of concern Left axilla: No adenopathy of concern Assessment and Plan Assessment: Assessment and Plan impression: 1. Stage I right breast cancer 2017, no evidence of recurrent cancer patient presently on anastrozole 2. Recent bilateral mammogram 09-17-22 benign BIRADS 2 3. The patient (anastrozole for 5 years and maybe stopped per medical oncology Plan: 1. Physician exam in 6 months patient to call sooner if any questions or concerns 2. Bilateral mammogram in 1 year CC: /Dr. Ogden Additional CC's: Dirk Ogden
== END ==
LOC: WWCWWP 11:23
PROVIDERS: ATTEND Surgery
DX: Z01.419 Encounter for gynecological examination (general) (routine) without abnormal findings (principal); I10 Essential (primary) hypertension; Z86.718 Personal history of other venous thrombosis and embolism; Z85.3 Personal history of malignant neoplasm of breast

== ENCOUNTER → 2023-03-31 | Outpatient (CLI) | payer MEDICARE ==
[2023-03-31 11:05] VITALS: BP 153/91; PULSE 84; RESP 18; TEMP 98
--- NOTE | 2023-03-31 11:14 | P.PN ---
Subjective Progress Note Date: 03/31/23 stage IA right breast cancer/ dx. 2016 Marce is a 62-year-old white female status post right breast lumpectomy and radiation therapy. Her surgery was in 2016. This was performed for a T1b N0 M0 ER+Pr+HER-2/eileen - tumor. She underwent needle localization right breast lumpectomy and sentinel node biopsy. Pathology revealed an 8 mm focus of invasive mammary carcinoma grade 2. Margins were negative, 4 sentinel nodes were negative. The patient completed radiation therapy on . The patient at this time has no complaints related to her breasts. The patient is presently on anastrozole., She does complain of some pain in her hips extending down into her feet. She was seen by Dr. James. She was taken off the anastrozole however it made no difference in the discomfort so he put her back on. She is presently taking anastrazole. Additionally the patient does have a history of ulcerative colitis which flared in May 2020 she was treated with Humira and steroids, she is presently on Humira. The patient was scheduled for repeat right breast mammogram on 04/15/2020. However she broke her right arm and they were unable to do the radiograph. She tripped and fell. She completed physical therapy for her arm when she fell and broke her left leg. She is no longer using a cane. She had a bone density performed which showed osteopenia in her back. This was done in June 2020. She is taking calcium. She had a bone density done recently by Dr. James at [facility], I do not have those results. She was diagnosed with a DVT in her left leg on 07-01-20. She was started on eliquis, which has been discontinued. Some new nodularity in her right breast near the 11 o'clock position for which she is concerned. She is not complaining of any other lumps masses or nodules in either breast. Is not complaining of any nipple discharge or skin changes. she had a bilateral mammogram on 09-17-22 which was benign BIRADS 2. Caffeine: Occasional Smoking: Negative chocolate: Occasional Family History: sister: diagnosed with carcino-sarcoma of the uterus/metastatic father: colon and mesothelioma Paternal grandmother: Uterine cancer Maternal grandmother: Pancreatic cancer Hormonal History: menarche: 10 ; 3, 3 children, breast fed:yes, age at first: 21 menopause: hysterectomy at 37 for prolapse uterus, did not take ovaries BCP: 20 years hormones: estrogen supplements for two years, and cream for 1 year, is now on anestrazole Medical history: Ulcerative colitis Macular degeneration fell and fracture of the right arm about March 17,weeks ago/ fracture left leg Sept 11 DVT left leg HTN Surgical history: Right breast lumpectomy/sentinal node biopsy gallbaldder hysterectomy sinus surgery Social Hsitory: smoke: none alcohol: none drugs: none ROS: constitutional: none HEENT: Negative Lungs: Asthma Heart: Is GI: Ulcerative colitis : Post-hysterectomy Musculoskeletal: Hip and leg pain; fracture right arm and right leg after falling on 2 separate occasions Hematologic: negative Psychiatric: Negative ALLERGIES: shellfish Objective - Vital Signs Vital signs: Intake & Output 03/30/23 03/31/23 03/31/23 18:59 06:59 18:59 Weight 74.843 kg - Constitutional General appearance: Present: cooperative - EENT Eyes: Present: EOMI ENT: Present: hearing grossly normal - Neck Neck: Present: normal ROM - Respiratory Respiratory: bilateral: CTA - Cardiovascular Rhythm: regular Heart sounds: normal: S1, S2 - Gastrointestinal General gastrointestinal: Present: soft - Integumentary Integumentary: Present: normal turgor - Musculoskeletal Musculoskeletal: Present: gait normal - Psychiatric Psychiatric: Present: A&O x's 3, appropriate affect, intact judgment & insight - Additional findings Additional findings: Breast Exam: BRA: 3X sports bra inspection: Bilateral grade 3 ptosis, well-healed scar right breast from prior surgery Palpation: Right breast: Multiple positional exam fibrocystic changes, some increased nodularity is noted near the 11 o'clock position which the patient brings to my attention, no other dominant masses or nodules of concern Right axilla: No adenopathy of concern Left breast: Multiple positional exam fibrocystic changes no dominant masses or nodules of concern Left axilla: No adenopathy of concern Assessment and Plan Assessment: Impression: 1. Stage I right breast cancer 2016, no evidence of recurrent cancer patient presently on anastrozole 2. Patient recently noticed some increased nodularity at the 11 o'clock position of the right breast, we will get an ultrasound of this area 3. Recent bilateral mammogram 09-17-22 benign BIRADS 2 4. The patient (anastrozole has been for 5 years but she is going to continue this as per Dr. James) Plan: 1. Ultrasound area of concern right breast to follow up after this 2. Bilateral mammogram in September 2023 CC: Dr. Ogden
== END ==
LOC: WWCWWP 10:35
PROVIDERS: ATTEND Surgery
DX: C50.911 Malignant neoplasm of unspecified site of right female breast (principal); I10 Essential (primary) hypertension; H35.30 Unspecified macular degeneration; Z80.8 Family history of malignant neoplasm of other organs or systems; Z85.3 Personal history of malignant neoplasm of breast; Z88.5 Allergy status to narcotic agent; Z88.0 Allergy status to penicillin; Z91.013 Allergy to seafood; Z86.718 Personal history of other venous thrombosis and embolism

== ENCOUNTER → 2023-04-29 | Outpatient (CLI) | payer MEDICARE ==
--- NOTE | 2023-04-29 10:45 | USB ---
Reason for Exam: Clinical finding. Patient History: Menarche at age 10. First Full-Term at age 21. Hysterectomy at age 37. Postmenopausal. Breast cancer, right, age 57. Patient used Estrogen for 2 years. Patient used Hormonal Contraceptives for 20 years. 09/20/2017, Lumpectomy on the Right side. 09/20/2017, Malignant Core Biopsy on the right side. 09/20/2017, Malignant Core Biopsy on the right side. 09/20/2017, Benign Cyst Aspiration on the right side. 08/16/2017, Malignant Core Biopsy on the right side. 10/2017, Radiation Therapy on the right side. Technique: Method: Targeted. Prior Study Comparison: 09/13/2020 Left Diagnostic Mammogram, [facility]. 09/15/2021 Bilateral Diagnostic Mammogram, [facility]. 09/17/2022 Bilateral MG 3D diag mammo w/cad MARCY, [facility]. Findings: The upper outer quadrant of the right breast was scanned. Targeted ultrasound right breast 9:00 to 1:00 position including the subareolar region and axilla. Particular attention to the 9-10 o'clock at the patient's palpable site shows no discrete abnormality. The patient also is unable to feel the previous palpable at this time. Recommend mammographic reassessment in 6 months. Biozorb device noted at the 1:00 position. No other solid or cystic lesion. Overall Assessment: Probably benign, BI-RAD 3 Management: Diagnostic Mammogram of both breasts in 6 months. If there is recurrence of any suspicious palpable area, the patient can be rescanned. A clinical breast exam by your physician is recommended on an annual basis and results should be correlated with mammographic findings. Results were given to the patient verbally at the time of exam. Electronically signed and approved by: Cornelia Alcantara M.D. Radiologist
== END | disposition home or self-care (01) ==
LOC: RADUSWWP 10:03
PROVIDERS: ATTEND Surgery
DX: N63.10 Unspecified lump in the right breast, unspecified quadrant (principal); Z78.0 Asymptomatic menopausal state; Z85.3 Personal history of malignant neoplasm of breast

== ENCOUNTER → 2023-05-14 | Outpatient (CLI) | payer MEDICARE ==
[2023-05-14 13:20] VITALS: BP 119/79; PULSE 73; RESP 18; TEMP 98
--- NOTE | 2023-05-14 13:27 | P.PN ---
Progress Note - Text Progress Note Date: 05/14/23 Marce is a 72 year old white female status post right breast lumpectomy and radiation therapy 2016. This was a [id number]+Pr+Her2- tumor. On her last visit of 03-31-23 she was complaining of some increased nodularity of the right breast at the 11:00 position. An ultrasound of htis area was ordered. The patient comes in for results of a right breast ultrasound done on 04-29-23. At this time there is nothing noted on ultrasound at the area of previous palpable change in the right breast. She states she cannot feel the area as well at this time. Limited examination of the right breast: Inspection: Grade 2 ptosis Palpation: Multiple positional exam fibroglandular changes no discrete nodularity particular attention at that 11 to 12 o'clock position No axillary adenopathy of concern Well-healed scars right breast and excellent from prior surgery Plan: repeat bilateral mammogram and exam August 2023 Nothing on today's examination or on her recent ultrasound of the right breast which would warrant interventional biopsy to follow up sooner any questions or concerns Cc: Dr. Ogden
== END ==
LOC: WWCWWP 13:00
PROVIDERS: ATTEND Surgery
DX: Z04.9 Encounter for examination and observation for unspecified reason (principal); Z90.11 Acquired absence of right breast and nipple; Z88.0 Allergy status to penicillin; Z88.5 Allergy status to narcotic agent; Z91.013 Allergy to seafood

== ENCOUNTER → 2023-09-23 | Outpatient (CLI) | payer MEDICARE ==
--- NOTE | 2023-09-23 14:56 | MM ---
Reason for Exam: Additional evaluation requested from prior study. Last screening mammogram was performed 12 month(s) ago. Patient History: Menarche at age 10. First Full-Term at age 21. Hysterectomy at age 37. Postmenopausal. Patient has history of breast feeding. Breast cancer, right, age 57. Previous chest radiation therapy at age 57. Patient used Estrogen for 2 years. Patient used Hormonal Contraceptives for 20 years. 09/20/2017, Lumpectomy on the Right side. 09/20/2017, Malignant Core Biopsy on the right side. 09/20/2017, Malignant Core Biopsy on the right side. 09/20/2017, Benign Cyst Aspiration on the right side. 08/16/2017, Malignant Core Biopsy on the right side. 10/2017, Radiation Therapy on the right side. Prior Study Comparison: 03/10/2018 Right Diagnostic Mammogram, [facility]. 08/15/2018 Bilateral Diagnostic Mammogram, [facility]. 08/17/2019 Bilateral Diagnostic Mammogram, [facility]. 07/04/2020 Right Diagnostic Mammogram, [facility]. 09/13/2020 Left Diagnostic Mammogram, [facility]. 09/15/2021 Bilateral Diagnostic Mammogram, [facility]. 09/17/2022 Bilateral MG 3D diag mammo w/cad MARCY, [facility]. Tissue Density: There are scattered fibroglandular densities. Findings: Analyzed By CAD. Postoperative changes right breast. No evidence for mass or distortion. No suspicious calcifications. Overall Assessment: Benign, BI-RAD 2 Management: Diagnostic Mammogram of both breasts in 1 year. . Results were given to the patient verbally at the time of exam. Patient should continue monthly self-breast exams. A clinical breast exam by your physician is recommended on an annual basis. This exam should not preclude additional follow-up of suspicious palpable abnormalities. Note on Erin scores and lifetime risk: 1. A Erin score greater than 3% is considered moderate risk. If this is the case, consider specialist referral to assess eligibility for a risk reducing agent. 2. If overall lifetime risk for the development of breast cancer is 20% or higher, the patient may qualify for future screening with alternating mammogram and breast MRI. Electronically signed and approved by: Percy Barroso M.D. Radiologis
== END | disposition home or self-care (01) ==
LOC: RADMAMWWP 14:01
PROVIDERS: ATTEND Surgery
DX: R92.323 Mammographic fibroglandular density, bilateral breasts (principal); Z85.3 Personal history of malignant neoplasm of breast; Z78.0 Asymptomatic menopausal state; Z92.0 Personal history of contraception
CPT/HCPCS: 77066; G0279; 77062

== ENCOUNTER → 2023-10-08 | Outpatient (CLI) | payer MEDICARE ==
[2023-10-08 09:40] VITALS: BP 132/82; PULSE 75; RESP 18; TEMP 97.9
--- NOTE | 2023-10-08 10:31 | P.PN ---
Subjective Progress Note Date: 10/08/23 stage IA right breast cancer/ dx. 2016 Marce is a 63-year-old white female status post right breast lumpectomy and radiation therapy. Her surgery was in 2016. This was performed for a T1b N0 M0 ER+Pr+HER-2/eileen - tumor. She underwent needle localization right breast lumpectomy and sentinel node biopsy. Pathology revealed an 8 mm focus of invasive mammary carcinoma grade 2. Margins were negative, 4 sentinel nodes were negative. The patient completed radiation therapy on . The patient at this time has no complaints related to her breasts. The patient is presently on anastrozole., She does complain of some pain in her hips extending down into her feet. She was seen by Dr. James. She was taken off the anastrozole however it made no difference in the discomfort so he put her back on. She is presently taking anastrazole. Additionally the patient does have a history of ulcerative colitis which flared in May 2020 she was treated with Humira and steroids, she is presently on Humira. The patient was scheduled for repeat right breast mammogram on 04/15/2020. However she broke her right arm and they were unable to do the radiograph. She tripped and fell. She completed physical therapy for her arm when she fell and broke her left leg. She is no longer using a cane. She had a bone density performed which showed osteopenia in her back. This was done in June 2020. She is taking calcium. She had a bone density done recently by Dr. James at [facility], I do not have those results. She was diagnosed with a DVT in her left leg on 07-01-20. She was started on eliquis, which has been discontinued. Some new nodularity in her right breast near the 11 o'clock position for which she is concerned. She is not complaining of any other lumps masses or nodules in either breast. Is not complaining of any nipple discharge or skin changes. Ultrasound of this area 04-29-23 no lesions of concern she had a bilateral mammogram on 09-17-22 which was benign BIRADS 2. 10-08-23 bilateral mammogram 09-23-23 BIRAD 2 She is not complaining of lumps masses or nodules in either breast Is presently off the L across She has decided to continue the anastrozole Caffeine: Occasional Smoking: Negative chocolate: Occasional Family History: sister: diagnosed with carcino-sarcoma of the uterus/metastatic father: colon and mesothelioma Paternal grandmother: Uterine cancer Maternal grandmother: Pancreatic cancer Hormonal History: menarche: 10 ; 3, 3 children, breast fed:yes, age at first: 21 menopause: hysterectomy at 37 for prolapse uterus, did not take ovaries BCP: 21 years hormones: estrogen supplements for two years, and cream for 1 year, is now on anestrazole Medical history: Ulcerative colitis Macular degeneration fell and fracture of the right arm about March 17,weeks ago/ fracture left leg Sept 11 DVT left leg HTN Surgical history: Right breast lumpectomy/sentinal node biopsy gallbaldder hysterectomy sinus surgery Social Hsitory: smoke: none alcohol: none drugs: none ROS: constitutional: none HEENT: Negative Lungs: Asthma Heart: Is GI: Ulcerative colitis : Post-hysterectomy Musculoskeletal: Hip and leg pain; fracture right arm and right leg after falling on 2 separate occasions Hematologic: negative Psychiatric: Negative ALLERGIES: shellfish Objective - Vital Signs Vital signs: Vital Signs Temp 97.9 F 10/08/23 09:33 Pulse 75 10/08/23 09:33 Resp 18 10/08/23 09:33 BP 132/82 10/08/23 09:33 Pulse Ox 96 10/08/23 09:33 FiO2 Intake & Output 10/07/23 10/08/23 10/08/23 18:59 06:59 18:59 Weight 77.111 kg - Constitutional General appearance: Present: cooperative - EENT Eyes: Present: EOMI ENT: Present: hearing grossly normal - Respiratory Respiratory: bilateral: CTA - Cardiovascular Rhythm: regular Heart sounds: normal: S1, S2 - Integumentary Integumentary: Present: normal turgor - Musculoskeletal Musculoskeletal: Present: gait normal - Psychiatric Psychiatric: Present: A&O x's 3, appropriate affect, intact judgment & insight - Additional findings Additional findings: Breast Exam: BRA: 3X sports bra inspection: Bilateral grade 3 ptosis, well-healed scar right breast from prior surgery Palpation: Right breast: Multiple positional exam fibrocystic changes, post surgical and radiation changes Right axilla: No adenopathy of concern Left breast: Multiple positional exam fibrocystic changes no dominant masses or nodules of concern Left axilla: No adenopathy of concern Assessment and Plan Assessment: Impression: 1. Stage I right breast cancer 2017, no evidence of recurrent cancer patient presently on anastrozole 2. Recent bilateral mammogram 09-23-23 benign BIRADS 2 3. The patient (anastrozole has been for 5 years but she is going to continue this as per Dr. James) Plan: 1. Continue to follow with medical oncology 2. Bilateral mammogram in September 2024 appointment at that time CC: Dr. Ogden
== END ==
LOC: WWCWWP 09:11
PROVIDERS: ATTEND Surgery
DX: Z12.31 Encounter for screening mammogram for malignant neoplasm of breast (principal); C50.911 Malignant neoplasm of unspecified site of right female breast; K51.90 Ulcerative colitis, unspecified, without complications; I10 Essential (primary) hypertension; M85.80 Other specified disorders of bone density and structure, unspecified site; Z17.0 Estrogen receptor positive status [ER+]; Z79.01 Long term (current) use of anticoagulants; Z79.811 Long term (current) use of aromatase inhibitors; Z90.710 Acquired absence of both cervix and uterus; Z86.718 Personal history of other venous thrombosis and embolism; Z92.3 Personal history of irradiation; Z88.0 Allergy status to penicillin; Z88.2 Allergy status to sulfonamides; Z91.013 Allergy to seafood

== ENCOUNTER → 2024-09-25 | Outpatient (CLI) | payer MEDICARE ==
--- NOTE | 2024-09-25 11:11 | MM ---
Reason for Exam: Additional evaluation requested from prior study. Last screening mammogram was performed 12 month(s) ago. Patient History: Menarche at age 10. First Full-Term at age 21. Hysterectomy at age 37. Postmenopausal. Patient has history of breast feeding. Breast cancer, right, age 57. Previous chest radiation therapy at age 57. Patient used Estrogen for 2 years. Patient used Hormonal Contraceptives for 20 years. 09/20/2017, Lumpectomy on the Right side. 09/20/2017, Malignant Core Biopsy on the right side. 09/20/2017, Malignant Core Biopsy on the right side. 09/20/2017, Benign Cyst Aspiration on the right side. 08/16/2017, Malignant Core Biopsy on the right side. 10/2017, Radiation Therapy on the right side. Tissue Density: There are scattered areas of fibroglandular density. Findings: Analyzed By CAD. The pattern is stable. There is a postsurgical change posterior right breast, stable from comparison. Focal asymmetry is upper right breast, stable from comparison studies. No significant interval change. No suspicious groups of microcalcifications, spiculated or lobular masses, architectural distortion or other secondary signs of malignancy are mammographically apparent. Overall Assessment: Benign, BI-RAD 2 Management: Screening Mammogram of both breasts in 1 year. A negative mammogram report should not preclude additional follow up of suspicious palpable abnormalities. Patient should continue monthly self breast exam. A clinical breast exam by your physician is recommended on an annual basis and results should be correlated with mammographic findings. Note on Erin scores and lifetime risk: 1. A Erin score greater than 3% is considered moderate risk. If this is the case, consider specialist referral to assess eligibility for a risk reducing agent. 2. If overall lifetime risk for the development of breast cancer is 20% or higher, the patient may qualify for future screening with alternating mammogram and breast MRI. [facility], , 09/25/2024 10:52 AM. Electronically signed and approved by: Dirk Sauceda D.O. Radiologis
== END | disposition home or self-care (01) ==
LOC: RADMAMWWP 10:25
PROVIDERS: ATTEND Surgery
DX: R92.323 Mammographic fibroglandular density, bilateral breasts (principal); Z85.3 Personal history of malignant neoplasm of breast; Z78.0 Asymptomatic menopausal state
CPT/HCPCS: 77066; G0279; 77062

== ENCOUNTER → 2024-09-29 | Outpatient (CLI) | payer MEDICARE ==
[2024-09-29 10:39] VITALS: BP 145/83; PULSE 73; RESP 16; TEMP 98.3
--- NOTE | 2024-09-29 11:17 | P.PN ---
Subjective Progress Note Date: 09/29/24 Principal diagnosis: stage IA right breast cancer/ dx. 2016 09/29/24 stage IA right breast cancer/ dx. 2016 Marce is a 64-year-old white female status post right breast lumpectomy and radiation therapy. Her surgery was in 2016. This was performed for a T1b N0 M0 ER+Pr+HER-2/eileen - tumor. She underwent needle localization right breast lumpectomy and sentinel node biopsy. Pathology revealed an 8 mm focus of invasive mammary carcinoma grade 2. Margins were negative, 4 sentinel nodes were negative. The patient completed radiation therapy on . The patient at this time has no complaints related to her breasts. The patient is presently on anastrozole., She does complain of some pain in her hips extending down into her feet. She was seen by Dr. James. She was taken off the anastrozole however it made no difference in the discomfort so he put her back on. She is presently taking anastrazole. Additionally the patient does have a history of ulcerative colitis which flared in May 2020 she was treated with Humira and steroids, she is presently on Humira. The patient was scheduled for repeat right breast mammogram on 04/15/2020. However she broke her right arm and they were unable to do the radiograph. She tripped and fell. She completed physical therapy for her arm when she fell and broke her left leg. She is no longer using a cane. She had a bone density performed which showed osteopenia in her back. This was done in June 2020. She is taking calcium. She had a bone density done recently by Dr. James at [facility], I do not have those results. She was diagnosed with a DVT in her left leg on 07-01-20. She was started on eliquis, which has been discontinued. She is not complaining of any other lumps masses or nodules in either breast. Is not complaining of any nipple discharge or skin changes. most recent bilateral mammogram on 10/26/23 which was benign BIRADS 2, personally reviewed Caffeine: Occasional Smoking: Negative chocolate: Occasional Family History: sister: diagnosed with carcino-sarcoma of the uterus/metastatic father: colon and mesothelioma Paternal grandmother: Uterine cancer Maternal grandmother: Pancreatic cancer Hormonal History: menarche: 10 ; 2, 3 children, breast fed:yes, age at first: 21 menopause: hysterectomy at 37 for prolapse uterus, did not take ovaries BCP: 20 years hormones: estrogen supplements for two years, and cream for 1 year, is now on anestrazole Medical history: Ulcerative colitis Macular degeneration fell and fracture of the right arm about March 17,weeks ago/ fracture left leg Sept 11 DVT left leg HTN Surgical history: Right breast lumpectomy/sentinal node biopsy gallbaldder hysterectomy sinus surgery Social Hsitory: smoke: none alcohol: none drugs: none ROS: constitutional: none HEENT: Negative Lungs: Asthma Heart: Is GI: Ulcerative colitis : Post-hysterectomy Musculoskeletal: Hip and leg pain; fracture right arm and right leg after falling on 2 separate occasions Hematologic: negative Psychiatric: Negative ALLERGIES: shellfish Objective - Vital Signs Vital signs: Vital Signs Temp 98.3 F 09/29/24 10:37 Pulse 73 09/29/24 10:37 Resp 16 09/29/24 10:37 BP 145/83 09/29/24 10:37 Pulse Ox 96 09/29/24 10:37 FiO2 Intake & Output 09/28/24 09/29/24 09/29/24 18:59 06:59 18:59 Weight 75.75 kg - Constitutional General appearance: Present: cooperative - EENT Eyes: Present: edentulous ENT: Present: hearing grossly normal - Neck Neck: Present: normal ROM - Respiratory Respiratory: bilateral: CTA - Cardiovascular Rhythm: regular Heart sounds: normal: S1, S2 - Integumentary Integumentary: Present: normal turgor - Musculoskeletal Musculoskeletal: Present: gait normal - Psychiatric Psychiatric: Present: A&O x's 3, appropriate affect, intact judgment & insight - Additional findings Additional findings: Breast Exam: BRA: 3X sports bra inspection: Bilateral grade 3 ptosis, well-healed scar right breast from prior surgery Palpation: Right breast: Multiple positional exam fibrocystic changes, post surgical and radiation changes, well healed scar Right axilla: No adenopathy of concern Left breast: Multiple positional exam fibrocystic changes no dominant masses or nodules of concern Left axilla: No adenopathy of concern Assessment and Plan Assessment: Impression: 1. Stage I right breast cancer 2016, no evidence of recurrent cancer patient presently on anastrozole 2. Recent bilateral mammogram 09-25-24 benign BIRADS 2, personally interpreted 3. The patient (anastrozole has been for 5 years but she is going to continue this as per Dr. James) Plan: 1. Continue to follow with medical oncology 2. Bilateral mammogram in September 2025 appointment at that time CC: Dr. Ogden
== END ==
LOC: WWCWWP 09:23
PROVIDERS: ATTEND Surgery
DX: R92.8 Other abnormal and inconclusive findings on diagnostic imaging of breast (principal); Z88.0 Allergy status to penicillin; Z88.5 Allergy status to narcotic agent; Z91.013 Allergy to seafood; Z90.11 Acquired absence of right breast and nipple; Z92.3 Personal history of irradiation; Z85.3 Personal history of malignant neoplasm of breast

== ENCOUNTER 2024-10-17 12:04 | Day surgery (SDC) | payer MEDICARE ==
[2024-10-13 13:43] VITALS: BMI 30.1
[~2024-10-17 12:04] MED LIST changes: -LACTATED RINGERS 1,000 ML IV SCH
[2024-10-17 12:40] VITALS: TEMP 98.2
[2024-10-17] MEDS: IV FLUID CONTINUATION 1,000 ML IV ONE (12:46)
[2024-10-17] MEDS: LACTATED RINGERS 1,000 ML IV SCH (12:47)
[2024-10-17] MEDS ORDERED: PROPOFOL 10 MG/ML 20 ML VIAL IV ONE (13:26)
--- NOTE | 2024-10-17 13:54 | P.PCN ---
Date of Procedure: 10/17/24 Procedure(s) Performed: BRIEF HISTORY: Patient is a 64-year-old pleasant female scheduled for an elective colonoscopy as a part of screening for colon cancer and history of ulcerative colitis diagnosed in 2012. She is currently maintained on Humira injections every 2 weeks. She remains in clinical remission. PROCEDURE PERFORMED: Colonoscopy with biopsies. PREOPERATIVE DIAGNOSIS: Screening for colon cancer/longstanding history of ulcerative colitis. IV sedation per Anesthesia. PROCEDURE: After informed consent was obtained, the patient, was brought into the endoscopy unit. IV sedation was administered by Anesthesia under continuous monitoring. Digital rectal examination was normal. Initially the Olympus CF-160 flexible video colonoscope was then inserted in the rectum, gradually advanced into the cecum without any difficulty. Careful examination was performed as the scope was gradually being withdrawn. Ileocecal valve and the appendiceal orifice were visualized and appeared normal. Prep was excellent. Mucosa of the cecum, ascending colon, transverse colon, normal. Scattered pseudopolyps noted in the descending colon,. Mucosa of the sigmoid colon, and rectum appeared normal. Biopsies were done from rectum to cecum at every 10 cm intervals to rule out dysplasia retroflexion was performed in the rectum and no lesions were seen. The patient tolerated the procedure well. IMPRESSION: Normal-appearing colon from rectum to cecum no evidence of active colitis or colorectal rectal neoplasia for scattered pseudopolyps in the left colon.. RECOMMENDATIONS: Findings of this examination were discussed with the patient as well as her family. She was advised to follow-up with the biopsy results. If the biopsies do not show any evidence of dysplasia, she can have repeat colonoscopy in 2 years..
[2024-10-17 13:58] VITALS: RESP 18
[2024-10-17 14:13] VITALS: BP 160/95; PULSE 86
== END 2024-10-17 14:39 | disposition home or self-care (01) ==
LOC: ORWHC2ENDO 12:04
PROVIDERS: ATTEND Internal Medicine Gastroenterology
DX: Z12.11 Encounter for screening for malignant neoplasm of colon (principal); K51.00 Ulcerative (chronic) pancolitis without complications; K63.5 Polyp of colon; I10 Essential (primary) hypertension; F41.9 Anxiety disorder, unspecified; Z79.620 Long term (current) use of immunosuppressive biologic; Z79.899 Other long term (current) drug therapy; Z86.718 Personal history of other venous thrombosis and embolism; Z85.3 Personal history of malignant neoplasm of breast; Z88.5 Allergy status to narcotic agent; Z88.0 Allergy status to penicillin; Z91.013 Allergy to seafood
CPT/HCPCS: 88305; 45380; J2704